=== PATIENT | female | born 1940 | race Caucasian/White ===

== ENCOUNTER → 2017-01-26 | Outpatient (CLI) | payer MEDICARE, OTHER ==
[~2017-01-26] MED LIST: REGADENOSON 0.4 MG/5 ML SYG ONE
--- NOTE | 2017-01-26 12:15 | CARRPT ---
DATE OF PROCEDURE: 01/26/2017 REASON FOR STRESS TESTING: Chest pain, assess for ischemia. BASELINE VITAL SIGNS AND ELECTROCARDIOGRAM: Pulse 57, blood pressure 158/71. Electrocardiogram rev eals sinus bradycardia at 57, normal axis, normal intervals, T-wave flattening in lead aVL. PROCEDURE: The patient underwent standard Lexiscan infusion protocol over 10 seconds followed by ra diolabeled tracer. The patient's test was stopped due to completion of protocol. Maximal achieved blood pressure during the test 180/79. Maximal heart rate during the test 71. ELECTROCARDIOGRAM FINDINGS: The patient did not develop any new Lexiscan-induced ST or T-wave menendez es from baseline abnormalities. The patient did have occasional PVCs. SYMPTOMS: The patient had no complaints of chest pain, but had stomach ache and hot flashes during stress test that resolved in recovery. IMPRESSION: 1. No Lexiscan-induced ST or T-wave changes from baseline abnormalities diagnostic for cardiac isch emia. 2. No complaints of chest pain or shortness of breath during stress testing. 3. Positive premature ventricular contractions during stress testing. 4. Report of nuclear images to follow in separate dictation. Dictated By: LIONEL RODRÍGUEZ/BERNADINE Conf#: [id number] DID#: [id number]
--- NOTE | 2017-01-26 13:02 | RADRPT ---
PROCEDURE: LEXISCAN MYOCARDIAL PERFUSION STUDY CLINICAL INDICATION: 76 -year-old patient with chest pain. TECHNIQUE: Lexiscan 0.4 mg intravenously separate acquisition, gated myocardial perfusion SPECT us ing 10.5 mCi intravenously at stress and 32 mCi intravenously at rest was performed using the rest/s tress sequence. Poststress SPECT images were obtained in the supine position. COMPARISON: No prior studies. FINDINGS: Perfusion images reveal no evidence of perfusion defects. Poststress gated SPECT images demonstrate no wall motion abnormalities. IMPRESSION: 1. No evidence of perfusion defects. 2. No wall motion abnormalities. 3. The left ventricle ejection fraction at stress is overestimated at greater than 70% likely due t o small cardiac volume. RPTAT: HH Physician Shani Date Time Electronically viewed and signed by Physician Shani on 01/26/2017 13:01 /
== END | disposition home or self-care (01) ==
LOC: NUC 07:53
PROVIDERS: ATTEND Internal Medicine
DX: R07.9 Chest pain, unspecified (principal); Z98.61 Coronary angioplasty status
CPT/HCPCS: 78451; J2785

== ENCOUNTER 2018-03-06 08:32 | Day surgery (SDC) | END 2018-03-06 15:13 | disposition home or self-care (01) ==

== ENCOUNTER 2018-05-15 05:39 | Day surgery (SDC) | payer MEDICARE, OTHER ==
--- NOTE | 2018-05-14 12:39 | PREOPHP ---
DATE OF ADMISSION: 05/15/2018 HISTORY OF PRESENT ILLNESS: This 77-year-old patient is admitted for elective cataract surgery of th e left eye. The patient has previously underwent cataract surgery of the right eye 2 months ago with excellent visual improvement. SYSTEMIC HISTORY: Positive for diabetes mellitus, but does not have any evidence of diabetic retinop athy. CURRENT MEDICATIONS: Include: 1. Valsartan. 2. Lantus insulin. 3. Doxazosin. 4. Metoprolol. 5. Humalog. 6. Ranitidine. 7. Allopurinol. 8. Furosemide. 9. Neurontin. 10. Pantoprazole. 11. Spironolactone. 12. Crestor. 13. Nitrostat. 14. Aldactone. 15. Lovaza. 16. Low dose aspirin (the aspirin has been discontinued 1 week prior to surgery). ALLERGIES: THE PATIENT IS ALLERGIC TO: 1. MORPHINE. 2. CODEINE. 3. DILAUDID. 4. IBUPROFEN. PHYSICAL EXAMINATION: The visual acuity with best correction is 20/30 plus in the right eye and 20/6 0 minus in the left eye. Slit lamp examination reveals a well-developed placed posterior chamber int raocular lens in the right eye and a nuclear sclerotic and posterior cortical cataract in the left ey e. Applanation tonometry is 17 mmHg. Examination of the retina is within normal limits. DIAGNOSIS: Mixed cataract, left eye. PLAN: Cataract extraction with lens implant, left eye. The risks and alternatives to the surgery busby ve been discussed with the patient as well as the hope for improvement of visual acuity leading to gr eater ability to perform activities of daily living. The patient understands this and agrees to proc eed with surgery. Dictated By: RODNEY SAHA/BERNADINE Conf#: [id number] DID#: [id number]
[~2018-05-15] VITALS: Ht 152.4 cm; Wt 100.5 kg
[2018-05-15] VITALS (9 sets, daily range): BP systolic 112–154; BP diastolic 55–76; PULSE 54–62; RESP 16–34; Ht 152.4 cm; Wt 100.5 kg
[~2018-05-15 05:39] MED LIST changes: +ACET-141 PO; +ALLO100T PO; +ASPI81TA52 PO; +CYAN500T46 PO; +DOXA2TAB PO; +FURO-109 PO; +GABA100C14 PO; +INSU100I12 SQ; +IRBE150T21 PO; +LANT3I SC; +LIRA0.6P2 SQ; +MAGN400T27 PO; +METO-429 PO; +MULTI PO; +NITR0.4T39 SL; +OMEG1CAP17 PO; +OMEG1CAP2 PO; +PANT40TA3 PO; +RANI150T5 PO; -REGADENOSON 0.4 MG/5 ML SYG ONE; +ROSU10TA55 PO; +SPIR25TA PO
[2018-05-15] MEDS ORDERED: SOD CHLORIDE 0.9% 1,000 ML IV SCH (06:00)
[2018-05-15] MEDS ORDERED: CYCLOPENTOLATE/PHENYLEPH 2 ML OPH OPER SCH (06:00)
[2018-05-15] MEDS ORDERED: DICLOFENAC 0.1% 2.5 ML OPH OPER SCH (06:00)
[2018-05-15] MEDS ORDERED: MOXIFLOXACIN 0.5% 3 ML OPH OPER SCH (06:00)
[2018-05-15] MEDS ORDERED: TROPICAMIDE 1% 15 ML OPH OPER SCH (06:00)
[2018-05-15] MEDS ORDERED: CARBACHOL 0.01% 1.5 ML OPH INJ ONE (06:46)
[2018-05-15] MEDS ORDERED: LIDOCAINE 4% (MPF) 5 ML INJ ONE (06:46)
[2018-05-15] MEDS ORDERED: CEFAZOLIN 1 GM INJ ONE (06:46)
[2018-05-15] MEDS ORDERED: TETRACAINE 0.5% 4 ML OPH ONE (06:47)
[2018-05-15] MEDS ORDERED: DEXAMETHASONE 4 MG/ML 1 ML INJ ONE (06:47)
[2018-05-15] MEDS ORDERED: EPINEPHrine 1 MG INJ ONE (06:47)
[2018-05-15] MEDS ORDERED: NA HYALURONATE/CHONDROITIN 0.5 ML SYG ONE (06:47)
[2018-05-15] MEDS ORDERED: GENTAMICIN 80 MG INJ ONE (06:47)
[2018-05-15] MEDS ORDERED: INSULIN ASPART [NOVOLOG] 3 ML PEN SC SCH (07:00)
[2018-05-15] MEDS ORDERED: GLUCOSE GEL 15 GRAM TUBE PO PRN ×2 (07:00)
[2018-05-15] MEDS ORDERED: GLUCOSE GEL 15 GRAM TUBE BUCCAL PRN (07:00)
[2018-05-15] MEDS ORDERED: GLUCAGON 1 MG INJ IM PRN (07:00)
[2018-05-15] MEDS ORDERED: DEXTROSE 50% 50 ML SYRINGE IV PRN ×2 (07:00)
--- NOTE | 2018-05-15 07:13 | PREAC ---
Date/Time of Note Date/Time of Note DATE: 05/15/18 TIME: 07:10 Anesthesia Eval and Record Evaluation Time Pre-Procedure Interview DATE: 05/15/18 TIME: 07:10 Age 77 Sex female NPO: 8 hrs Preoperative diagnosis L eye cataract Planned procedure L eye cataract extraction w/ IOL Past Medical History Past Medical History: Includes (gastritis) Cardio: Dyslipidemia, CAD Endo: Diabetes Musculoskeletal: Osteoarthritis Renal: CKD GI: Morbid obesity Surgery & Anesthesia Issues No known issue Meds Anticoagulation: No Beta Everett within 24 hr: No Reason Beta Everett not given: Pt. not on B-Everett Reported Medications Multivitamins* (Theragran*) 1 Tab Tab, 1 TAB PO DAILY, TAB 03/05/18 Cyanocobalamin* (Vitamin B12*) 500 Mcg Tab, 2500 MCG PO DAILY, TAB 03/05/18 Acetaminophen* (Acetaminophen*) 500 MG Extra Strength Tablet, 500 MG PO DAILY PRN for PAIN AND OR ELEVATED TEMP, TAB 03/05/18 [place]-3 Fatty Acids/Fish Oil (Fish Oil 1,000 mg Softgel) 1 Each Capsule, 1 EACH PO DAILY, CAP 03/05/18 Liraglutide (Victoza 3-Frank) 0.6 Mg/0.1 Ml Pen.injctr, 1.8 MG SQ DAILY, SYR 03/05/18 Aspirin (Low Dose Aspirin) 81 Mg Tablet.dr, 81 MG PO DAILY, #30 TAB 03/05/18 [place]-3 Acid Ethyl Esters (Lovaza) 1 Gm Capsule, 1 GM PO BID, CAP 03/05/18 Nitroglycerin* (Nitrostat*) 0.4 Mg Tab.subl, 0.4 MG SL Q5MIN PRN for CHEST PAIN, BOTTLE 03/05/18 Magnesium Oxide* (Mag-Oxide*) 400 Mg Tablet, 400 MG PO BID, TAB 03/05/18 Rosuvastatin Calcium* (Crestor*) 10 Mg Tablet, 10 MG PO QHS, #30 TAB 03/05/18 Spironolactone* (Aldactone*) 25 Mg Tablet, 25 MG PO BID, #60 TAB 03/05/18 Pantoprazole* (Protonix*) 40 Mg Tablet.dr, 40 MG PO DAILY, TAB 03/05/18 Gabapentin* (Gabapentin*) 100 Mg Capsule, 100 MG PO BID, #90 CAP 03/05/18 Furosemide* (Lasix*) 40 Mg Tablet, 40 MG PO DAILY, TAB 03/05/18 Allopurinol* (Allopurinol*) 100 Mg Tablet, 100 MG PO DAILY, TAB 03/05/18 Ranitidine Hcl* (Ranitidine Hcl*) 150 Mg Tablet, 150 MG PO HS, #30 TAB 03/05/18 Insulin Lispro (Humalog Kwikpen U-100) 100 Unit/1 Ml Insuln.pen, 8 UNIT SQ QHS, EA 03/05/18 Insulin Lispro (Humalog Kwikpen U-100) 100 Unit/1 Ml Insuln.pen, 6 UNIT SQ BID, EA IN THE MORNING AND AND AFTERNOON 03/05/18 Metoprolol Tartrate* (Lopressor*) 50 Mg Tab, 50 MG PO DAILY, #60 TAB 03/05/18 Doxazosin Mesylate* (Doxazosin Mesylate*) 2 Mg Tablet, 2 MG PO BID, TAB 03/05/18 Insulin Glargine* (Lantus*) 100 Unit/Ml Soln, 26 UNIT SC QPM, #1 VIAL 03/05/18 Insulin Glargine* (Lantus*) 100 Unit/Ml Soln, 29 UNIT SC QAM, #1 VIAL 03/05/18 Irbesartan* (Irbesartan*) 150 Mg Tablet, 150 MG PO DAILY, TAB 03/05/18 Current Medications Diclofenac Sodium (Voltaren 0.1%) 1 drop Q5 MIN X 3 OPER Last administered on 05/15/18at 06:08; Admin Dose 1 DROP; Start 05/15/18 at 06:00 Tropicamide (Mydriacyl 1%) 1 drop Q5 MIN X3 OPER Last administered on 05/15/18at 06:09; Admin Dose 1 DROP; Start 05/15/18 at 06:00 Moxifloxacin HCl (Vigamox) 1 drop Q5 MIN X 3 OPER Last administered on at 06:09; Admin Dose 1 DROP; Start 05/15/18 at 06:00 Cyclopentolate/ Phenylephrine (Cyclomydril Oph 2 ml) 1 drop Q5 MIN X 3 OPER Last administered on 05/15/18at 06:09; Admin Dose 1 DROP; Start 05/15/18 at 06:00 Sodium Chloride 1,000 ml @ 25 mls/hr Q24H IV ; Start 05/15/18 at 06:00 Diagnostic Test (Pha) (Accu-Chek) 1 ea 02 XX ; Start 05/16/18 at 02:00 Insulin Aspart (Novolog Insulin Pen) NOVOLOG *MILD* ALGORI... Q4 SC ; Start 05/15/18 at 07:00 Miscellaneous Information 1 ea NOTE XX ; Start 05/15/18 at 07:00 Glucose (Glutose) 15 gm Q15M PRN PO DECREASED GLUCOSE; Start 05/15/18 at 07:00 Glucose (Glutose) 22.5 gm Q15M PRN PO DECREASED GLUCOSE; Start 05/15/18 at 07:00 Dextrose (D50w Syringe) 25 ml Q15M PRN IV DECREASED GLUCOSE; Start 05/15/18 at 07:00 Dextrose (D50w Syringe) 50 ml Q15M PRN IV DECREASED GLUCOSE; Start 05/15/18 at 07:00 Glucagon (Glucagen) 1 mg Q15M PRN IM DECREASED GLUCOSE; Start 05/15/18 at 07:00 Glucose (Glutose) 15 gm Q15M PRN BUCCAL DECREASED GLUCOSE; Start 05/15/18 at 07:00 Meds reviewed: Yes Allergies Coded Allergies: Iodine and Iodide Containing Produc (Verified Allergy, Unknown, 05/15/18) codeine (Verified Allergy, Unknown, 05/15/18) hydromorphone (Verified Allergy, Unknown, 05/15/18) morphine (Verified Allergy, Unknown, 05/15/18) Allergies Reviewed: Yes Labs/Studies Labs Reviewed: Reviewed by anesthesiologist test: N/A Studies: ECG (ST w/ frequent PVCs) Pre-procedure Exam Last vitals Vital Signs Date Temp Pulse Resp B/P (MAP) Pulse Ox O2 O2 Flow FiO2 Time Delivery Rate 05/15/18 97.8 62 18 154/69 98 Room Air 06:49 (97) Airway: Adequate mouth opening, Adequate thyromental dist Mallampati: Mallampati II Teeth: Abnormal (multiple missing teeth, chipped teeth in front; teeth in poor condition) Lung: Normal Heart: Normal ASA Physical Status ASA physical status: 3 Emergency: None Planned Anesthetic General/MAC: MAC Pre-operative Attestations Prior to commencing anesthesia and surgery, the patient was re-evaluated, there was verification of: *The patient's identity *The results of appropriate recent lab work and preoperative vital signs *The above evaluation not changing prior to induction *Anesthetic plan, risk benefits, alternative and complications discussed with patient/family; questions answered; patient/family understands, accepts and wishes to proceed. GEMA CALDWELL May 15, 2018 07:13
[2018-05-15] MEDS ORDERED: ALBUTEROL 0.083% (NEB) 2.5 MG/3 ML AMP HHN PRN (07:30)
[2018-05-15] MEDS ORDERED: DIPHENHYDRAMINE 50 MG INJ IV PRN (07:30)
[2018-05-15] MEDS ORDERED: ACETAMINOPHEN 500 MG TAB PO PRN (07:30)
[2018-05-15] MEDS ORDERED: LABETALOL HCL 20MG INJ IV PRN (07:30)
[2018-05-15] MEDS ORDERED: ACETAMINOPHEN 325 MG TAB PO PRN (07:30)
[2018-05-15] MEDS ORDERED: FENTAnyl 50 MCG/ML VIAL IV PRN (07:30)
[2018-05-15] MEDS ORDERED: hydrALAzine 20 MG INJ IV PRN (07:30)
[2018-05-15] MEDS ORDERED: ONDANSETRON 4 MG INJ IV PRN (07:30)
[2018-05-15] MEDS ORDERED: GABA100C14 PO (07:35)
[2018-05-15] MEDS ORDERED: LIDOCAINE 2% (SDV) 5 ML INJ ONE (07:37)
[2018-05-15] MEDS ORDERED: PROPOFOL 20 ML ONE (07:37)
[2018-05-15] MEDS ORDERED: ICOS1CAP PO (07:39)
[2018-05-15] MEDS ORDERED: FENTAnyl 50 MCG/ML VIAL ONE (07:55)
--- NOTE | 2018-05-15 08:18 | SIPON ---
Date/Time of Note Date/Time of Note DATE: 05/15/18 TIME: 08:17 Operative Report Preoperative Diagnosis cortical cataract os Postoperative Diagnosis same Operation/Procedure Performed cataract extraction with lens implant os Surgeon rodney hernández commercial loan assistant none Anesthesia: MAC Estimated blood loss: none Transfusion Required none Specimen none Grafts/Implants posterior chamber lens implant Complications none RODNEY HERNÁNDEZ MD May 15, 2018 08:18
--- NOTE | 2018-05-15 08:21 | PAC ---
Date/Time of Note Date/Time of Note DATE: 05/15/18 TIME: 08:20 Post-Anesthesia Notes Post-Anesthesia Note Last documented vital signs Vital Signs Date Temp Pulse Resp B/P Pulse Ox O2 O2 Flow FiO2 Time (MAP) Delivery Rate 05/15/18 97.8 98.1 62 60 18 18 154/69 98 98 Room 06:49 081 (07) 141 Air RA Activity: WNL Respiratory function: WNL Cardiovascular function: WNL Mental status: Baseline Pain reasonably controlled: Yes Hydration appropriate: Yes Nausea/Vomiting absent: Yes GEMA CALDWELL May 15, 2018 08:21
[2018-05-15] MEDS ORDERED: INSULIN ASPART [NOVOLOG] 3 ML PEN SC ONE (08:30)
--- NOTE | 2018-05-15 08:34 | OPR ---
DATE OF OPERATION: 05/15/2018 PREOPERATIVE DIAGNOSIS: Cortical cataract, left eye. POSTOPERATIVE DIAGNOSIS: Cortical cataract, left eye. OPERATION PERFORMED: Cataract extraction with lens implant, left eye. SURGEON: Rodney Lakhani MD. ANESTHESIA: Carin MICHAELS. OPERATION: Phacoemulsification with posterior chamber intraocular lens implant, left eye. PROCEDURE: The patient was brought to the operating room and placed on the table with an IV in place and the patient attached to an traverse rod assembler. Oxygen was given via face mask. After some intravenous sedation was administered, local anesthesia was given using Xylocaine 2% with epinephrine, mixed with Marcaine 0.5%. This was given in a lid block and retrobulbar injection. The p atient was then prepped and draped in the usual sterile manner. A wire lid speculum was inserted between the lids of the left eye. A Superblade was used to enter the anterior chamber at the corneoscleral limbus at the 10:30 o'clock position. A separate incision was made using a 3.0-mm keratome which entered the corneoscleral junction at the 12 o'clock position. Thr ough this 3-mm opening, an irrigating cystotome was introduced into the anterior chamber. The chamber was filled with Viscoat and an anterior capsulotomy was performed. Balanced salt solution was then u sed for hydrodissection of the lens. A phacoemulsification handpiece was then brought into the field and introduced into the anterior chamber. The lens nucleus was emulsified using a deep groove and cr acking the nucleus into quadrants. Following this, each quadrant was aspirated and emulsified at the pupillary margin. After this was completed, the irrigation/aspiration handpiece was brought to the field, introduced in to the posterior chamber, and the lens cortical material was removed. When this was completed, additi onal Viscoat was injected into the anterior and posterior chambers. The 3-mm opening had its internal lips enlarged, and then the posterior chamber intraocular lens blaine uring 19.0 diopters posterior chamber intraocular lens ([employer] Model [id number]) was then injected into the posterior chamber using the lens injector system. After the leading haptic wa s introduced into the capsular bag and the lens optic was present in the center of the eye, the injec tor was removed and the trailing haptic was grasped with non-toothed forceps and introduced into the capsular fold superiorly. A Sinskey hook was then used to rotate the intraocular lens so that the lip s were oriented in the horizontal meridian. One 10-0 nylon suture was placed across the wound. Prior to tying, the irrigation/aspiration handpiece was reintroduced into the anterior chamber to rem ove the Viscoat. Miochol was instilled to constrict the pupil, and then the 10-0 nylon suture was tie d. The ends were cut short and then the knot was buried. Then, 0.5 mL of dexamethasone and 0.5 mL of Ancef were injected into the sub-Tenon space in the infer ior fornix. Ciloxan drops were then placed on the surface of the eye. The speculum was removed and a patch was applied. The patient then left the operating room in satisfactory condition. Dictated By: RODNEY SAHA/BERNADINE Conf#: [id number] DID#: [id number]
[2018-05-16] MEDS ORDERED: ACCU-CHEK XX SCH (02:00)
== END 2018-05-15 09:38 | disposition home or self-care (01) ==
LOC: SDS 05:39
PROVIDERS: ATTEND Ophthalmology
DX: H25.12 Age-related nuclear cataract, left eye (principal); E78.5 Hyperlipidemia, unspecified; I25.10 Atherosclerotic heart disease of native coronary artery without angina pectoris; E11.9 Type 2 diabetes mellitus without complications; Z79.4 Long term (current) use of insulin; Z79.82 Long term (current) use of aspirin
CPT/HCPCS: 66984; 82962; J0171; J0690; J1100; J1580; J1815; J3010; V2632

== ENCOUNTER 2018-07-28 21:07 | Observation (INO) | payer MEDICARE, OTHER ==
[~2018-07-28] VITALS: Ht 152.4 cm; Wt 98.2 kg
[~2018-07-28 21:07] MED LIST changes: +ICOS1CAP PO; -LIRA0.6P2 SQ; -OMEG1CAP17 PO; -OMEG1CAP2 PO; -ROSU10TA55 PO; +RSV10T PO
[2018-07-28] MEDS ORDERED: ONDANSETRON 4 MG INJ IV STA (23:01)
[2018-07-29] VITALS (13 sets, daily range): BP systolic 108–151; BP diastolic 56–67; PULSE 57–100; RESP 18–20; Ht 152.4 cm; Wt 98.2 kg
--- NOTE | 2018-07-29 00:57 | ERD ---
ER Documentation Chief Complaint Chief Complaint SOB, PAINFUL RESPIRATION/ COUGH X'S 6 DAYS HPI This is a 77-year-old female presents with 6 days of increasing shortness of breath, as well as increased bilateral lower leg swelling. She has a history of coronary disease and CHF, currently she is on Lasix, she was admitted to [facility] about a month ago, for weeping coming from her legs, she did not have chest pain at that time. Her symptoms are also exacerbated by movement. She has had no nausea vomiting. No fever ROS All systems reviewed and are negative except as per history of present illness. Medications Home Meds Reported Medications Icosapent Ethyl (VASCEPA) 1 Gm Capsule, 1 GM PO BID, CAP 05/15/18 Gabapentin* (Gabapentin*) 100 Mg Capsule, 100 MG PO QID, #90 CAP 05/15/18 Multivitamins* (Theragran*) 1 Tab Tab, 1 TAB PO DAILY, TAB 03/05/18 Cyanocobalamin* (Vitamin B12*) 500 Mcg Tab, 2500 MCG PO DAILY, TAB 03/05/18 Acetaminophen* (Acetaminophen*) 500 MG Extra Strength Tablet, 500 MG PO DAILY PRN for PAIN AND OR ELEVATED TEMP, TAB 03/05/18 Aspirin (Low Dose Aspirin) 81 Mg Tablet.dr, 81 MG PO DAILY, #30 TAB 03/05/18 Nitroglycerin* (Nitrostat*) 0.4 Mg Tab.subl, 0.4 MG SL Q5MIN PRN for CHEST PAIN, BOTTLE 03/05/18 Magnesium Oxide* (Mag-Oxide*) 400 Mg Tablet, 400 MG PO BID, TAB 03/05/18 Rosuvastatin Calcium* (Crestor*) 10 Mg Tablet, 10 MG PO QHS, #30 TAB 03/05/18 Spironolactone* (Aldactone*) 25 Mg Tablet, 25 MG PO BID, #60 TAB 03/05/18 Pantoprazole* (Protonix*) 40 Mg Tablet.dr, 40 MG PO DAILY, TAB 03/05/18 Furosemide* (Lasix*) 40 Mg Tablet, 40 MG PO DAILY, TAB 03/05/18 Allopurinol* (Allopurinol*) 100 Mg Tablet, 100 MG PO DAILY, TAB 03/05/18 Ranitidine Hcl* (Ranitidine Hcl*) 150 Mg Tablet, 150 MG PO HS, #30 TAB 03/05/18 Insulin Lispro (Humalog Kwikpen U-100) 100 Unit/1 Ml Insuln.pen, 8 UNIT SQ QHS, EA 03/05/18 Insulin Lispro (Humalog Kwikpen U-100) 100 Unit/1 Ml Insuln.pen, 6 UNIT SQ BID, EA IN THE MORNING AND AND AFTERNOON 03/05/18 Metoprolol Tartrate* (Lopressor*) 50 Mg Tab, 50 MG PO DAILY, #60 TAB 03/05/18 Doxazosin Mesylate* (Doxazosin Mesylate*) 2 Mg Tablet, 2 MG PO BID, TAB 03/05/18 Insulin Glargine* (Lantus*) 100 Unit/Ml Soln, 26 UNIT SC QPM, #1 VIAL 03/05/18 Insulin Glargine* (Lantus*) 100 Unit/Ml Soln, 29 UNIT SC QAM, #1 VIAL 03/05/18 Irbesartan* (Irbesartan*) 150 Mg Tablet, 150 MG PO DAILY, TAB 03/05/18 Allergies Allergies: Coded Allergies: Iodine and Iodide Containing Produc (Verified Allergy, Unknown, 05/15/18) codeine (Verified Allergy, Unknown, 05/15/18) hydromorphone (Verified Allergy, Unknown, 05/15/18) morphine (Verified Allergy, Unknown, 05/15/18) PMhx/Soc History of Surgery: Yes (CHOLECYSTECTOMY, R SHOULDER, R KNEE MENISCUS) Anesthesia Reaction: No Hx Neurological Disorder: No Hx Respiratory Disorders: No Hx Cardiac Disorders: Yes (HTN,HLP) Hx Psychiatric Problems: No Hx Miscellaneous Medical Probl: No Hx Alcohol Use: No Hx Substance Use: No Hx Tobacco Use: No Smoking Status: Never smoker Physical Exam Vitals Vital Signs Date Temp Pulse Resp B/P (MAP) Pulse Ox O2 O2 Flow FiO2 Time Delivery Rate 07/29/18 71 17 136/61 95 Room Air 01:12 (86) 07/28/18 98.5 90 20 135/72 93 21:14 (93) Physical Exam Const: No acute distress Head: Atraumatic Eyes: Normal Conjunctiva ENT: Normal External Ears, Nose and Mouth. Neck: Full range of motion. No meningismus. Resp: There are rales noted bilaterally, there is no expiratory wheezing Cardio: Regular rate and rhythm, no murmurs Abd: Soft, non tender, non distended. Normal bowel sounds Skin: No petechiae or rashes Back: No midline or flank tenderness Ext: No cyanosis, or edema Neur: Awake and alert Psych: Normal Mood and Affect Result Diagram: 07/28/18 2335 07/28/18 2335 Results 24 hrs Laboratory Tests Test 07/28/18 23:35 White Blood Count 9.1 10^3/ul Red Blood Count 3.85 10^6/ul Hemoglobin 10.8 g/dl Hematocrit 35.7 % Mean Corpuscular Volume 92.7 fl Mean Corpuscular Hemoglobin 28.1 pg Mean Corpuscular Hemoglobin Concent 30.3 g/dl Red Cell Distribution Width 17.3 % Platelet Count 143 10^3/UL Mean Platelet Volume 13.3 fl Immature Granulocytes % 1.200 % Neutrophils % 71.6 % Lymphocytes % 20.6 % Monocytes % 4.8 % Eosinophils % 1.4 % Basophils % 0.4 % Nucleated Red Blood Cells % 0.0 /100WBC Immature Granulocytes # 0.110 10^3/ul Neutrophils # 6.5 10^3/ul Lymphocytes # 1.9 10^3/ul Monocytes # 0.4 10^3/ul Eosinophils # 0.1 10^3/ul Basophils # 0.0 10^3/ul Nucleated Red Blood Cells # 0.0 10^3/ul Sodium Level 143 mmol/L Potassium Level 4.6 mmol/L Chloride Level 109 mmol/L Carbon Dioxide Level 26 mmol/L Anion Gap 8 Blood Urea Nitrogen 28 mg/dl Creatinine 1.33 mg/dl Est Glomerular Filtrat Rate mL/min mL/min Glucose Level 253 mg/dl Calcium Level 9.1 mg/dl Total Bilirubin 0.3 mg/dl Direct Bilirubin 0.00 mg/dl Indirect Bilirubin 0.3 mg/dl Aspartate Amino Transf (AST/SGOT) 20 IU/L Alanine Aminotransferase (ALT/SGPT) 9 IU/L Alkaline Phosphatase 88 IU/L Troponin I < 0.012 ng/ml B-Type Natriuretic Peptide 715 PG/ML Total Protein 6.8 g/dl Albumin 3.8 g/dl Globulin 3.00 g/dl Albumin/Globulin Ratio 1.26 Current Medications Medications Dose Sig/Manuel Start Time Status Last (Trade) Ordered Route PRN Stop Time Admin Dose Reason Admin Ondansetron 4 mg ONCE STAT 07/28/18 DC 07/28/18 HCl (Zofran IV 23:01 23:44 Inj) 07/28/18 23:03 Furosemide 20 mg ONCE ONCE 07/29/18 DC 07/29/18 (Lasix) IV 01:00 01:07 07/29/18 01:01 Procedures/MDM This is a 77-year-old female presents for evaluation of chest pain and increasing shortness of breath. Her chest pain is reproducible on exam, and is nonradiating, my suspicion for acute coronary syndrome is low, however she does have risk factors significantly with history of coronary artery disease, and CHF. Additionally she appears to have an acute on chronic CHF exacerbation, this she will be admitted to observation. She was given a dose of Lasix. EKG: Rate/Rhythm: Normal Sinus Rhythm QRS, ST, T-waves: No changes consistent w/ acute ischemia Impression: No evidence of ischemia or arrhythmia Accepting Care Team: Current data and ongoing care discussed. Primary: Harvey Consulting: None Outstanding Data: none Departure Diagnosis: Primary Impression: Shortness of breath Additional Impressions: Chest pain Chest pain type: unspecified Qualified Codes: R07.9 - Chest pain, unspecified CHF (congestive heart failure) Heart failure type: unspecified Heart failure chronicity: unspecified Qualified Codes: I50.9 - Heart failure, unspecified Condition: JULIOCESAR Abdul MD July 29, 2018 00:57
[2018-07-29] MEDS ORDERED: FUROSEMIDE 20 MG INJ IV ONE (01:00)
[2018-07-29] MEDS ORDERED: Vitamin D PO (03:13)
[2018-07-29] MEDS ORDERED: METO2.5T PO (03:13)
[2018-07-29] MEDS ORDERED: ONDANSETRON 4 MG INJ IV PRN (03:30)
[2018-07-29] MEDS ORDERED: NITROGLYCERIN (SL) 0.4 MG TAB SL PRN (03:30)
[2018-07-29] MEDS ORDERED: NACL 0.9% 3 ML SYG IV SCH (03:30)
[2018-07-29] MEDS ORDERED: ALBUTEROL/IPRATROPIUM (NEB) 3 ML AMP HHN PRN (03:30)
[2018-07-29] MEDS ORDERED: DEXTROSE 50% 50 ML SYRINGE IV PRN ×2 (04:00)
[2018-07-29] MEDS ORDERED: GLUCOSE GEL 15 GRAM TUBE PO PRN ×2 (04:00)
[2018-07-29] MEDS ORDERED: GLUCAGON 1 MG INJ IM PRN (04:00)
[2018-07-29] MEDS ORDERED: GLUCOSE GEL 15 GRAM TUBE BUCCAL PRN (04:00)
[2018-07-29] MEDS: ACETAMINOPHEN 325 MG TAB PO PRN ×2 (05:18→20:11)
--- NOTE | 2018-07-29 06:03 | HP ---
Date/Time of Note Date/Time of Note DATE: 07/29/18 TIME: 05:59 Assessment/Plan VTE Prophylaxis Pharmacological prophylaxis: heparin Lines/Catheters IV Catheter Type (from Nrsg): Saline Lock Assessment/Plan Assessment/Plan 1. Right-sided rib/chest pain: Pain is actually on the rib underneath her right breast. -Chest x-ray does not show any rib fracture. Will obtain chest CT. -Given her history of CAD with stents x7, will rule out ACS -EKG without ST-T wave abnormalities and first troponin negative -Telemetry monitoring -Aspirin, beta-carlito, antilipid. 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 Shortness of breath: secondary to acute on chronic CHF (systolic versus diastolic) -Work-up for ACS -Diuresis -Follow-up 2D echo 3. CAD status post multiple stent: See #1 4. Dyslipidemia: Continue Crestor 5. Type 1 diabetes: Continue insulin 6. Gout: Continue allopurinol Result Diagram: 07/28/18 2335 07/28/18 2335 Results 24hrs Laboratory Tests Test 07/28/18 23:35 07/29/18 02:59 White Blood Count 9.1 Red Blood Count 3.85 L Hemoglobin 10.8 L Hematocrit 35.7 L Mean Corpuscular Volume 92.7 Mean Corpuscular Hemoglobin 28.1 L Mean Corpuscular Hemoglobin Concent 30.3 L Red Cell Distribution Width 17.3 H Platelet Count 143 Mean Platelet Volume 13.3 H Immature Granulocytes % 1.200 H Neutrophils % 71.6 Lymphocytes % 20.6 Monocytes % 4.8 Eosinophils % 1.4 Basophils % 0.4 Nucleated Red Blood Cells % 0.0 Immature Granulocytes # 0.110 H Neutrophils # 6.5 Lymphocytes # 1.9 Monocytes # 0.4 Eosinophils # 0.1 Basophils # 0.0 Nucleated Red Blood Cells # 0.0 Sodium Level 143 Potassium Level 4.6 Chloride Level 109 Carbon Dioxide Level 26 Anion Gap 8 Blood Urea Nitrogen 28 H Creatinine 1.33 H Est Glomerular Filtrat Rate mL/min Glucose Level 253 H Calcium Level 9.1 Total Bilirubin 0.3 Direct Bilirubin 0.00 Indirect Bilirubin 0.3 Aspartate Amino Transf (AST/SGOT) 20 Alanine Aminotransferase (ALT/SGPT) 9 L Alkaline Phosphatase 88 Troponin I < 0.012 B-Type Natriuretic Peptide 715 H Total Protein 6.8 Albumin 3.8 Globulin 3.00 Albumin/Globulin Ratio 1.26 Bedside Glucose 207 HPI/ROS Admit Date/Time Admit Date/Time July 29, 2018 at 01:16 Hx of Present Illness This is a 77-year-old female with a history of hypertension, type 2 diabetes, dyslipidemia, CAD with multiple stents, CHF, gout who presented to the ER complaining of chest pain shortness of breath. Symptoms have been progressively getting worse for the past several days. Shortness of breath is worse when she is in a supine position. Chest pain is actually right-sided and underneath her right breast. Tenderness was elicited on palpation of the rib right below her breast. She does not actually have any pain on her breast. Last mammogram per patient was a year ago and it was negative. She also reported lower extremity swelling. Her fire extinguisher sprinkler inspector is Dr. Wray. When presented to the ER, vitals were stable. First troponin negative and EKG without ST-T wave abnormalities PMH/Family/Social Past Medical History Medical History: other (See HPI) Medications Current Medications IV Flush (NS 3 ml) 3 ml PER PROTOCOL IV ; Start 07/29/18 at 03:30 Ondansetron HCl (Zofran Inj) 4 mg Q6H PRN IV NAUSEA/VOMITING; Start 07/29/18 at 03:30 Nitroglycerin (Nitroglycerin (Sl Tab) 0.4 Mg) 1 tab Q5M PRN SL .CHEST PAIN; Start 07/29/18 at 03:30 Acetaminophen (Tylenol Tab) 650 mg Q6H PRN PO .PAIN 1-3 OR TEMP Last administered on 07/29/18at 05:18; Admin Dose 650 MG; Start 07/29/18 at 03:30 Heparin Sodium (Porcine) (Heparin (5000 Units/1ml)) 5,000 unit Q12 SC ; Start 07/29/18 at 09:00 Albuterol/ Ipratropium (Duoneb) 3 ml Q2H RESP THERAPY PRN HHN SHORTNESS OF BREATH; Start 07/29/18 at 03:30 Allopurinol (Zyloprim) 100 mg DAILY PO ; Start 07/29/18 at 09:00 Doxazosin Mesylate (Cardura) 2 mg BID PO ; Start 07/29/18 at 09:00 Furosemide (Lasix) 40 mg DAILY PO ; Start 07/29/18 at 09:00 Gabapentin (Neurontin) 100 mg QID PO ; Start 07/29/18 at 09:00 Insulin Glargine (Lantus) 28 units QAM SC ; Start 07/29/18 at 09:00 Magnesium Oxide (Mag-Ox 400) 400 mg DAILY PO ; Start 07/29/18 at 09:00 Metolazone (Zaroxolyn) 2.5 mg DAILY PO ; Start 07/29/18 at 09:00 Metoprolol Tartrate (Lopressor) 50 mg DAILY PO ; Start 07/29/18 at 09:00 Pantoprazole (Protonix Tab) 40 mg DAILY PO ; Start 07/29/18 at 09:00 Spironolactone (Aldactone) 25 mg BID PO ; Start 07/29/18 at 09:00 Miscellaneous Information 150 mg DAILY PO ; Start 07/29/18 at 09:00; Status UNV Miscellaneous Information 10 mg BID PO ; Start 07/29/18 at 09:00; Status UNV Miscellaneous Information 1 ea NOTE XX ; Start 07/29/18 at 04:00 Glucose (Glutose) 15 gm Q15M PRN PO DECREASED GLUCOSE; Start 07/29/18 at 04:00 Glucose (Glutose) 22.5 gm Q15M PRN PO DECREASED GLUCOSE; Start 07/29/18 at 04:00 Dextrose (D50w Syringe) 25 ml Q15M PRN IV DECREASED GLUCOSE; Start 07/29/18 at 04:00 Dextrose (D50w Syringe) 50 ml Q15M PRN IV DECREASED GLUCOSE; Start 07/29/18 at 04:00 Glucagon (Glucagen) 1 mg Q15M PRN IM DECREASED GLUCOSE; Start 07/29/18 at 04:00 Glucose (Glutose) 15 gm Q15M PRN BUCCAL DECREASED GLUCOSE; Start 07/29/18 at 04:00 Insulin Aspart (Novolog Insulin Pen) 8 unit WITH MEALS SC ; Start 07/29/18 at 08:00 Diagnostic Test (Pha) (Accu-Chek) 1 ea 02 XX ; Start 07/30/18 at 02:00 Insulin Aspart (Novolog Insulin Pen) NOVOLOG *MILD* ALGORITHM WITH MEALS BEDTIME SC ; Start 07/29/18 at 08:00 Coded Allergies: Iodine and Iodide Containing Produc (Verified Allergy, Unknown, 05/15/18) codeine (Verified Allergy, Unknown, 05/15/18) hydromorphone (Verified Allergy, Unknown, 05/15/18) morphine (Verified Allergy, Unknown, 05/15/18) Past Surgical History Past Surgical Hx: other (HPI) Family History Significant Family History: no pertinent family hx Social History Alcohol Use: none Smoking Status: Former smoker Drug Use: none Exam/Review of Systems Vital Signs Vitals Vital Signs Date Temp Pulse Resp B/P (MAP) Pulse Ox O2 O2 Flow FiO2 Time Delivery Rate 07/29/18 65 04:00 07/29/18 98.7 18 108/57 96 03:36 (74) 07/29/18 Room Air 01:59 Intake and Output 07/28/18 07/28/18 07/29/18 1515:00 23:00 07:00 IntakeIntake Total 200 ml BalanceBalance 200 ml Exam Constitutional: alert, oriented, well developed Eyes: EOMI, PERRL Respiratory: clear to auscultation, normal air movement Cardiovascular: regular rate and rhythm, nl pulses Gastrointestinal: soft Musculoskeletal: other (Pain was elicited on the rib right below the right breast) Extremities: edema MIGUELANGEL PAEZ MD July 29, 2018 06:03
[2018-07-29] MEDS ORDERED: NON-FORMULARY/PATIENT OWN MED (Insulin Lispro (Humalog Kwikpen U-100) 8 UNIT) SQ SCH (08:00)
[2018-07-29] MEDS: SPIRONOLACTONE 25 MG TAB PO SCH ×2 (08:35→20:11)
[2018-07-29] MEDS: ALLOPURINOL 100 MG TAB PO SCH (08:35)
[2018-07-29] MEDS: MAGNESIUM OXIDE 400 MG TAB PO SCH (08:35)
[2018-07-29] MEDS: METOLAZONE 2.5 MG TAB PO SCH ×2 (08:35→09:00)
[2018-07-29] MEDS: PANTOPRAZOLE (EC) 40 MG TAB PO SCH (08:36)
[2018-07-29] MEDS: DOXAZOSIN 2 MG TAB PO SCH ×2 (08:36→20:11)
[2018-07-29] MEDS: GABAPENTIN 100 MG CAP PO SCH ×4 (08:36→20:11)
[2018-07-29] MEDS: INSULIN ASPART [NOVOLOG] 3 ML PEN SC SCH ×7 (08:39→20:16)
[2018-07-29] MEDS: HEPARIN 5,000 UNIT/1 ML VIAL SC SCH ×2 (08:39→20:20)
[2018-07-29] MEDS: INSULIN GLARGINE [LANTus] (100 UNITS/ML) SYG SC SCH (08:39)
[2018-07-29] MEDS ORDERED: FUROSEMIDE 20 MG INJ IV SCH (09:00)
[2018-07-29] MEDS: METOPROLOL 50 MG TAB PO SCH ×2 (09:00→12:04)
[2018-07-29] MEDS ORDERED: LOSARTAN 50 MG TAB PO SCH (09:00)
[2018-07-29] MEDS ORDERED: FUROSEMIDE 40 MG TAB PO SCH (09:00)
--- NOTE | 2018-07-29 12:25 | CONS ---
Assessment/Plan Assessment/Plan Assessment/Plan 1.Chest pain unspecified 2.Sob sec to Chf exacerbation 3.Ckd-3 4.AODM 5.Htn 6.Dyslipidemia 7.Anemia sec to Ckd p: -Chest pain with no acute ST/T wave abnormality on EKG. First set troponin negative -Ckd-3. S.cr unchanged. Continue diuresis -Diastolic Chf. Continue diuresis. Check 2D Echo. Change lasix to 40mg iv bid. Hold cozaar while pt is being diuresed -Htn, Bp profile reviewed. Bp meds noted -Uncontrolled AODM. HBA1C 9.3 -Anemia. Check iron studies. Order epogen after review of iron studies -Dyslipidemia -Renal issues d/w pts family at bedside Consultation Date/Type/Reason Admit Date/Time July 29, 2018 at 01:16 Type of Consult Nephrology Reason for Consultation Ckd-3 Date/Time of Note DATE: 07/29/18 TIME: 12:21 Cardiovascular: other (sob on admission) Past Medical History Medical History Nephrology: congestive heart failure, coronary artery disease, diabetes, hypertension, renal disease Home Meds Reported Medications [Vitamin D] No Conflict Check, [address] PO QFriday 07/29/18 Metolazone* (Metolazone*) 2.5 Mg Tablet, 2.5 MG PO DAILY, TAB 07/29/18 Icosapent Ethyl (VASCEPA) 1 Gm Capsule, 1 GM PO BID, CAP 05/15/18 Gabapentin* (Gabapentin*) 100 Mg Capsule, 100 MG PO QID, #90 CAP 05/15/18 Multivitamins* (Theragran*) 1 Tab Tab, 1 TAB PO DAILY, TAB 03/05/18 Cyanocobalamin* (Vitamin B12*) 500 Mcg Tab, 2500 MCG PO DAILY, TAB 03/05/18 Acetaminophen* (Acetaminophen*) 500 MG Extra Strength Tablet, 1000 MG PO Q6 PRN for PAIN AND OR ELEVATED TEMP, TAB 03/05/18 Aspirin (Low Dose Aspirin) 81 Mg Tablet.dr, 81 MG PO DAILY, #30 TAB 03/05/18 Nitroglycerin* (Nitrostat*) 0.4 Mg Tab.subl, 0.4 MG SL Q5MIN PRN for CHEST PAIN, BOTTLE 03/05/18 Magnesium Oxide* (Mag-Oxide*) 400 Mg Tablet, 400 MG PO DAILY, TAB 03/05/18 Rosuvastatin Calcium* (Crestor*) 10 Mg Tablet, 10 MG PO BID, #30 TAB 03/05/18 Spironolactone* (Aldactone*) 25 Mg Tablet, 25 MG PO BID, #60 TAB 03/05/18 Pantoprazole* (Protonix*) 40 Mg Tablet.dr, 40 MG PO DAILY, TAB 03/05/18 Furosemide* (Lasix*) 40 Mg Tablet, 40 MG PO DAILY, TAB 03/05/18 Allopurinol* (Allopurinol*) 100 Mg Tablet, 100 MG PO DAILY, TAB 03/05/18 Ranitidine Hcl* (Ranitidine Hcl*) 150 Mg Tablet, 150 MG PO HS, #30 TAB 03/05/18 Insulin Lispro (Humalog Kwikpen U-100) 100 Unit/1 Ml Insuln.pen, 8 UNIT SQ WITH MEALS, EA 03/05/18 Metoprolol Tartrate* (Lopressor*) 50 Mg Tab, 50 MG PO DAILY, #60 TAB 03/05/18 Doxazosin Mesylate* (Doxazosin Mesylate*) 2 Mg Tablet, 2 MG PO BID, TAB 03/05/18 Insulin Glargine* (Lantus*) 100 Unit/Ml Soln, 28 UNIT SC QPM, #1 VIAL 03/05/18 Insulin Glargine* (Lantus*) 100 Unit/Ml Soln, 28 UNIT SC QAM, #1 VIAL 03/05/18 Irbesartan* (Irbesartan*) 150 Mg Tablet, 150 MG PO DAILY, TAB 03/05/18 Medications Current Medications IV Flush (NS 3 ml) 3 ml PER PROTOCOL IV ; Start 07/29/18 at 03:30 Ondansetron HCl (Zofran Inj) 4 mg Q6H PRN IV NAUSEA/VOMITING; Start 07/29/18 at 03:30 Nitroglycerin (Nitroglycerin (Sl Tab) 0.4 Mg) 1 tab Q5M PRN SL .CHEST PAIN; Start 07/29/18 at 03:30 Acetaminophen (Tylenol Tab) 650 mg Q6H PRN PO .PAIN 1-3 OR TEMP Last administered on 07/29/18at 05:18; Admin Dose 650 MG; Start 07/29/18 at 03:30 Heparin Sodium (Porcine) (Heparin (5000 Units/1ml)) 5,000 unit Q12 SC Last administered on 07/29/18 08:39; Admin Dose 5,000 UNIT; Start 07/29/18 at 09:00 Albuterol/ Ipratropium (Duoneb) 3 ml Q2H RESP THERAPY PRN HHN SHORTNESS OF BREATH; Start 07/29/18 at 03:30 Allopurinol (Zyloprim) 100 mg DAILY PO Last administered on 07/29/18 08:35; Admin Dose 100 MG; Start 07/29/18 at 09:00 Doxazosin Mesylate (Cardura) 2 mg BID PO Last administered on 07/29/18 08:36; Admin Dose 2 MG; Start 07/29/18 at 09:00 Furosemide (Lasix) 40 mg DAILY PO ; Start 07/29/18 at 09:00 Gabapentin (Neurontin) 100 mg QID PO Last administered on 07/29/18 12:04; Admi n Dose 100 MG; Start 07/29/18 at 09:00 Insulin Glargine (Lantus) 28 units QAM SC Last administered on 07/29/18 08:39; Admin Dose 28 UNITS; Start 07/29/18 at 09:00 Magnesium Oxide (Mag-Ox 400) 400 mg DAILY PO Last administered on 07/29/18 08:35; Admin Dose 400 MG; Start 07/29/18 at 09:00 Metolazone (Zaroxolyn) 2.5 mg DAILY PO ; Start 07/29/18 at 09:00 Metoprolol Tartrate (Lopressor) 50 mg DAILY PO Last administered on 07/29/18at 12:04; Admin Dose 50 MG; Start 07/29/18 at 09:00 Pantoprazole (Protonix Tab) 40 mg DAILY PO Last administered on 07/29/18 08:36; Admin Dose 40 MG; Start 07/29/18 at 09:00 Spironolactone (Aldactone) 25 mg BID PO Last administered on 07/29/18 08:35; Admin Dose 25 MG; Start 07/29/18 at 09:00 Miscellaneous Information 150 mg DAILY PO ; Start 07/29/18 at 09:00; Status UNV Miscellaneous Information 10 mg BID PO ; Start 07/29/18 at 09:00; Status UNV Miscellaneous Information 1 ea NOTE XX ; Start 07/29/18 at 04:00 Glucose (Glutose) 15 gm Q15M PRN PO DECREASED GLUCOSE; Start 07/29/18 at 04:00 Glucose (Glutose) 22.5 gm Q15M PRN PO DECREASED GLUCOSE; Start 07/29/18 at 04:00 Dextrose (D50w Syringe) 25 ml Q15M PRN IV DECREASED GLUCOSE; Start 07/29/18 at 04:00 Dextrose (D50w Syringe) 50 ml Q15M PRN IV DECREASED GLUCOSE; Start 07/29/18 at 04:00 Glucagon (Glucagen) 1 mg Q15M PRN IM DECREASED GLUCOSE; Start 07/29/18 at 04:00 Glucose (Glutose) 15 gm Q15M PRN BUCCAL DECREASED GLUCOSE; Start 07/29/18 at 04:00 Insulin Aspart (Novolog Insulin Pen) 8 unit WITH MEALS SC Last administered on 07/29/18at 11:49; Admin Dose 8 UNIT; Start 07/29/18 at 08:00 Diagnostic Test (Pha) (Accu-Chek) 1 ea 02 XX ; Start 07/30/18 at 02:00 Insulin Aspart (Novolog Insulin Pen) NOVOLOG *MILD* ALGORITHM WITH MEALS BEDTIME SC Last administered on 07/29/18at 11:49; Admin Dose 1 UNIT; Start 07/29/18 at 08:00 Furosemide (Lasix) 20 mg DAILY IV Last administered on 07/29/18at 10:16; Admin Dose 20 MG; Start 07/29/18 at 09:00 Allergies: Coded Allergies: Iodine and Iodide Containing Produc (Verified Allergy, Unknown, 05/15/18) codeine (Verified Allergy, Unknown, 05/15/18) hydromorphone (Verified Allergy, Unknown, 05/15/18) morphine (Verified Allergy, Unknown, 05/15/18) Past Surgical History Past Surgical Hx: other (HPI) Social History Alcohol Use: none Smoking Status: Former smoker Drug Use: none Exam/Review of Systems Vital Signs Vitals Vital Signs Date Temp Pulse Resp B/P (MAP) Pulse Ox O2 O2 Flow FiO2 Time Delivery Rate 07/29/18 98.3 67 18 151/67 94 Room Air 11:48 (95) Intake and Output 07/28/18 07/28/18 07/29/18 1515:00 23:00 07:00 IntakeIntake Total 400 ml BalanceBalance 400 ml Labs Result Diagram: 07/29/18 0530 07/29/18 0530 Results 24hrs Laboratory Tests Test 07/28/18 23:35 07/29/18 02:59 07/29/18 05:30 07/29/18 07:43 White Blood Count 9.1 8.0 Red Blood Count 3.85 L 3.38 L Hemoglobin 10.8 L 9.5 L Hematocrit 35.7 L 31.5 L Mean Corpuscular 92.7 93.2 Volume Mean Corpuscular 28.1 L 28.1 L Hemoglobin Mean Corpuscular 30.3 L 30.2 L Hemoglobin Concent Red Cell 17.3 H 17.2 H Distribution Width Platelet Count 143 123 L Mean Platelet Volume 13.3 H 12.8 H Immature 1.200 H 0.900 H Granulocytes % Neutrophils % 71.6 66.3 Lymphocytes % 20.6 25.2 Monocytes % 4.8 5.1 Eosinophils % 1.4 2.1 Basophils % 0.4 0.4 Nucleated Red Blood 0.0 0.0 Cells % Immature 0.110 H 0.070 H Granulocytes # Neutrophils # 6.5 5.3 Lymphocytes # 1.9 2.0 Monocytes # 0.4 0.4 Eosinophils # 0.1 0.2 Basophils # 0.0 0.0 Nucleated Red Blood 0.0 0.0 Cells # Sodium Level 143 143 Potassium Level 4.6 4.9 Chloride Level 109 110 Carbon Dioxide Level 26 27 Anion Gap 8 6 Blood Urea Nitrogen 28 H 28 H Creatinine 1.33 H 1.39 H Est Glomerular Filtrat Rate mL/min Glucose Level 253 H 167 Calcium Level 9.1 8.6 Total Bilirubin 0.3 0.2 Direct Bilirubin 0.00 0.00 Indirect Bilirubin 0.3 0.2 Aspartate Amino 20 14 L Transf (AST/SGOT) Alanine 9 L 9 L Aminotransferase (AL T/SGPT) Alkaline Phosphatase 88 76 Troponin I < 0.012 < 0.012 B-Type Natriuretic 715 H Peptide Total Protein 6.8 5.7 #L Albumin 3.8 3.0 L Globulin 3.00 2.70 Albumin/Globulin 1.26 1.11 Ratio Bedside Glucose 207 166 Hemoglobin A1c 9.8 H Magnesium Level 1.7 Creatine Kinase 37 Creatine Kinase 1.4 Index Creatinine Kinase MB 0.52 (Mass) Triglycerides Level 138 Cholesterol Level 117 LDL Cholesterol, 51 Calculated HDL Cholesterol 38 Cholesterol/HDL 3.0 Ratio Thyroid Stimulating 0.903 Hormone (TSH) Test 07/29/18 10:50 07/29/18 11:38 Creatine Kinase 47 Creatine Kinase 1.0 Index Creatinine Kinase MB 0.49 (Mass) Troponin I < 0.012 Bedside Glucose 143 Medications Medications Current Medications IV Flush (NS 3 ml) 3 ml PER PROTOCOL IV ; Start 07/29/18 at 03:30 Ondansetron HCl (Zofran Inj) 4 mg Q6H PRN IV NAUSEA/VOMITING; Start 07/29/18 at 03:30 Nitroglycerin (Nitroglycerin (Sl Tab) 0.4 Mg) 1 tab Q5M PRN SL .CHEST PAIN; Start 07/29/18 at 03:30 Acetaminophen (Tylenol Tab) 650 mg Q6H PRN PO .PAIN 1-3 OR TEMP Last administered on 07/29/18at 05:18; Admin Dose 650 MG; Start 07/29/18 at 03:30 Heparin Sodium (Porcine) (Heparin (5000 Units/1ml)) 5,000 unit Q12 SC Last administered on 07/29/18at 08:39; Admin Dose 5,000 UNIT; Start 07/29/18 at 09:00 Albuterol/ Ipratropium (Duoneb) 3 ml Q2H RESP THERAPY PRN HHN SHORTNESS OF BREATH; Start 07/29/18 at 03:30 Allopurinol (Zyloprim) 100 mg DAILY PO Last administered on 07/29/18at 08:35; Admin Dose 100 MG; Start 07/29/18 at 09:00 Doxazosin Mesylate (Cardura) 2 mg BID PO Last administered on 07/29/18 08:36; Admin Dose 2 MG; Start 07/29/18 at 09:00 Furosemide (Lasix) 40 mg DAILY PO ; Start 07/29/18 at 09:00 Gabapentin (Neurontin) 100 mg QID PO Last administered on 07/29/18at 12:04; Admin Dose 100 MG; Start 07/29/18 at 09:00 Insulin Glargine (Lantus) 28 units QAM SC Last administered on 07/29/18at 08:39; Admin Dose 28 UNITS; Start 07/29/18 at 09:00 Magnesium Oxide (Mag-Ox 400) 400 mg DAILY PO Last administered on 07/29/18at 08:35; Admin Dose 400 MG; Start 07/29/18 at 09:00 Metolazone (Zaroxolyn) 2.5 mg DAILY PO ; Start 07/29/18 at 09:00 Metoprolol Tartrate (Lopressor) 50 mg DAILY PO Last administered on 07/29/18at 12:04; Admin Dose 50 MG; Start 07/29/18 at 09:00 Pantoprazole (Protonix Tab) 40 mg DAILY PO Last administered on 07/29/18at 08:36; Admin Dose 40 MG; Start 07/29/18 at 09:00 Spironolactone (Aldactone) 25 mg BID PO Last administered on 07/29/18at 08:35; Admin Dose 25 MG; Start 07/29/18 at 09:00 Miscellaneous Information 150 mg DAILY PO ; Start 07/29/18 at 09:00; Status UNV Miscellaneous Information 10 mg BID PO ; Start 07/29/18 at 09:00; Status UNV Miscellaneous Information 1 ea NOTE XX ; Start 07/29/18 at 04:00 Glucose (Glutose) 15 gm Q15M PRN PO DECREASED GLUCOSE; Start 07/29/18 at 04:00 Glucose (Glutose) 22.5 gm Q15M PRN PO DECREASED GLUCOSE; Start 07/29/18 at 04:00 Dextrose (D50w Syringe) 25 ml Q15M PRN IV DECREASED GLUCOSE; Start 07/29/18 at 04:00 Dextrose (D50w Syringe) 50 ml Q15M PRN IV DECREASED GLUCOSE; Start 07/29/18 at 04:00 Glucagon (Glucagen) 1 mg Q15M PRN IM DECREASED GLUCOSE; Start 07/29/18 at 04:00 Glucose (Glutose) 15 gm Q15M PRN BUCCAL DECREASED GLUCOSE; Start 07/29/18 at 04:00 Insulin Aspart (Novolog Insulin Pen) 8 unit WITH MEALS SC Last administered on 07/29/18at 11:49; Admin Dose 8 UNIT; Start 07/29/18 at 08:00 Diagnostic Test (Pha) (Accu-Chek) 1 ea 02 XX ; Start 07/30/18 at 02:00 Insulin Aspart (Novolog Insulin Pen) NOVOLOG *MILD* ALGORITHM WITH MEALS BEDTIME SC Last administered on 07/29/18at 11:49; Admin Dose 1 UNIT; Start 07/29/18 at 08:00 Furosemide (Lasix) 20 mg DAILY IV Last administered on 07/29/18at 10:16; Admin Dose 20 MG; Start 07/29/18 at 09:00 CHRIS BRYANT MD July 29, 2018 12:25
[2018-07-29] MEDS: [UNRECOGNIZED DRUG - OTHER] XX SCH ×2 (14:30→22:30)
--- NOTE | 2018-07-29 15:04 | PN ---
Date/Time of Note Date/Time of Note DATE: 07/29/18 TIME: 14:59 Assessment/Plan VTE Prophylaxis Risk score (from Ns)>0 risk: 4 SCD applied (from Ns): No SCD contraindicated: other Pharmacological prophylaxis: heparin Lines/Catheters IV [facility]from [facility] Saline [facility] Assessment/Plan Hospital Course S: Patient has less shortness of breath now. Seen by cardiology earlier today. O: Vs- see below PE: Constitutional: alert, oriented, well developed Eyes: EOMI, PERRL Respiratory: clear to auscultation, normal air movement Cardiovascular: regular rate and rhythm, nl pulses Gastrointestinal: soft Musculoskeletal: other (some pain was elicited on the rib right below the right breast) Extremities: edema 1-2 + bilateral to the mid calves Assessment/Plan: 77-year female presents with: 1. Right-sided rib/chest pain: Pain is actually on the rib underneath her right breast-Chest x-ray does not show any rib fracture.-EKG without ST-T wave abnormalities and first troponin negative -Given her history of CAD with stents x7, will rule out ACS, follow-up third troponin is first were negative -Telemetry monitoring -Aspirin, beta-carlito, antilipid. 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 Shortness of breath: secondary to acute on chronic CHF (systolic versus diastolic) -Work-up for ACS -Diuresis -cardiology team has also put on Lasix 40 mg IV twice daily continue for now monitor ins and outs -Follow-up 2D echo 3. CAD status post multiple stent: See #1 4. Dyslipidemia: Continue Crestor 5. Type 1 diabetes: Continue insulin 6. Gout: Continue allopurinol Result Diagram: 07/29/1852907/29/18529 Results 24hrs Laboratory Tests Test 07/28/18 23:35 07/29/18 02:59 07/29/18 05:30 07/29/18 07:43 White Blood Count 9.1 8.0 Red Blood Count 3.85 L 3.38 L Hemoglobin 10.8 L 9.5 L Hematocrit 35.7 L 31.5 L Mean Corpuscular 92.7 93.2 Volume Mean Corpuscular 28.1 L 28.1 L Hemoglobin Mean Corpuscular 30.3 L 30.2 L Hemoglobin Concent Red Cell 17.3 H 17.2 H Distribution Width Platelet Count 143 123 L Mean Platelet Volume 13.3 H 12.8 H Immature 1.200 H 0.900 H Granulocytes % Neutrophils % 71.6 66.3 Lymphocytes % 20.6 25.2 Monocytes % 4.8 5.1 Eosinophils % 1.4 2.1 Basophils % 0.4 0.4 Nucleated Red Blood 0.0 0.0 Cells % Immature 0.110 H 0.070 H Granulocytes # Neutrophils # 6.5 5.3 Lymphocytes # 1.9 2.0 Monocytes # 0.4 0.4 Eosinophils # 0.1 0.2 Basophils # 0.0 0.0 Nucleated Red Blood 0.0 0.0 Cells # Sodium Level 143 143 Potassium Level 4.6 4.9 Chloride Level 109 110 Carbon Dioxide Level 26 27 Anion Gap 8 6 Blood Urea Nitrogen 28 H 28 H Creatinine 1.33 H 1.39 H Est Glomerular Filtrat Rate mL/min Glucose Level 253 H 167 Calcium Level 9.1 8.6 Iron Level 35 Total Iron Binding 341 Capacity Percent Iron 10 L Saturation Total Bilirubin 0.3 0.2 Direct Bilirubin 0.00 0.00 Indirect Bilirubin 0.3 0.2 Aspartate Amino 20 14 L Transf (AST/SGOT) Alanine 9 L 9 L Aminotransferase (AL T/SGPT) Alkaline Phosphatase 88 76 Troponin I < 0.012 < 0.012 B-Type Natriuretic 715 H Peptide Total Protein 6.8 5.7 #L Albumin 3.8 3.0 L Globulin 3.00 2.70 Albumin/Globulin 1.26 1.11 Ratio Bedside Glucose 207 166 Hemoglobin A1c 9.8 H Magnesium Level 1.7 Creatine Kinase 37 Creatine Kinase 1.4 Index Creatinine Kinase MB 0.52 (Mass) Triglycerides Level 138 Cholesterol Level 117 LDL Cholesterol, 51 Calculated HDL Cholesterol 38 Cholesterol/HDL 3.0 Ratio Thyroid Stimulating 0.903 Hormone (TSH) Test 07/29/18 10:50 07/29/18 11:38 Creatine Kinase 47 Creatine Kinase 1.0 Index Creatinine Kinase MB 0.49 (Mass) Troponin I < 0.012 Bedside Glucose 143 Exam/Review of Systems Exam Vitals Vital Signs Date Temp Pulse Resp B/P (MAP) Pulse Ox O2 O2 Flow FiO2 Time Delivery Rate 07/29/18 69 12:00 07/29/18 98.3 18 151/67 94 Room Air 11:48 (95) Intake and Output 07/28/18 07/28/18 07/29/18 1414:59 22:59 06:59 IntakeIntake Total 400 ml BalanceBalance 400 ml Results Results 24hrs Laboratory Tests Test 07/28/18 23:35 07/29/18 02:59 07/29/18 05:30 07/29/18 07:43 White Blood Count 9.1 8.0 Red Blood Count 3.85 L 3.38 L Hemoglobin 10.8 L 9.5 L Hematocrit 35.7 L 31.5 L Mean Corpuscular 92.7 93.2 Volume Mean Corpuscular 28.1 L 28.1 L Hemoglobin Mean Corpuscular 30.3 L 30.2 L Hemoglobin Concent Red Cell 17.3 H 17.2 H Distribution Width Platelet Count 143 123 L Mean Platelet Volume 13.3 H 12.8 H Immature 1.200 H 0.900 H Granulocytes % Neutrophils % 71.6 66.3 Lymphocytes % 20.6 25.2 Monocytes % 4.8 5.1 Eosinophils % 1.4 2.1 Basophils % 0.4 0.4 Nucleated Red Blood 0.0 0.0 Cells % Immature 0.110 H 0.070 H Granulocytes # Neutrophils # 6.5 5.3 Lymphocytes # 1.9 2.0 Monocytes # 0.4 0.4 Eosinophils # 0.1 0.2 Basophils # 0.0 0.0 Nucleated Red Blood 0.0 0.0 Cells # Sodium Level 143 143 Potassium Level 4.6 4.9 Chloride Level 109 110 Carbon Dioxide Level 26 27 Anion Gap 8 6 Blood Urea Nitrogen 28 H 28 H Creatinine 1.33 H 1.39 H Est Glomerular Filtrat Rate mL/min Glucose Level 253 H 167 Calcium Level 9.1 8.6 Iron Level 35 Total Iron Binding 341 Capacity Percent Iron 10 L Saturation Total Bilirubin 0.3 0.2 Direct Bilirubin 0.00 0.00 Indirect Bilirubin 0.3 0.2 Aspartate Amino 20 14 L Transf (AST/SGOT) Alanine 9 L 9 L Aminotransferase (AL T/SGPT) Alkaline Phosphatase 88 76 Troponin I < 0.012 < 0.012 B-Type Natriuretic 715 H Peptide Total Protein 6.8 5.7 #L Albumin 3.8 3.0 L Globulin 3.00 2.70 Albumin/Globulin 1.26 1.11 Ratio Bedside Glucose 207 166 Hemoglobin A1c 9.8 H Magnesium Level 1.7 Creatine Kinase 37 Creatine Kinase 1.4 Index Creatinine Kinase MB 0.52 (Mass) Triglycerides Level 138 Cholesterol Level 117 LDL Cholesterol, 51 Calculated HDL Cholesterol 38 Cholesterol/HDL 3.0 Ratio Thyroid Stimulating 0.903 Hormone (TSH) Test 07/29/18 10:50 07/29/18 11:38 Creatine Kinase 47 Creatine Kinase 1.0 Index Creatinine Kinase MB 0.49 (Mass) Troponin I < 0.012 Bedside Glucose 143 Medications Medication Current Medications IV Flush (NS 3 ml) 3 ml PER PROTOCOL IV ; Start 07/29/18 at 03:30 Ondansetron HCl (Zofran Inj) 4 mg Q6H PRN IV NAUSEA/VOMITING; Start 07/29/18 at 03:30 Nitroglycerin (Nitroglycerin (Sl Tab) 0.4 Mg) 1 tab Q5M PRN SL .CHEST PAIN; Start 07/29/18 at 03:30 Acetaminophen (Tylenol Tab) 650 mg Q6H PRN PO .PAIN 1-3 OR TEMP Last administered on 07/29/18at 05:18; Admin Dose 650 MG; Start 07/29/18 at 03:30 Heparin Sodium (Porcine) (Heparin (5000 Units/1ml)) 5,000 unit Q12 SC Last administered on 07/29/18at 08:39; Admin Dose 5,000 UNIT; Start 07/29/18 at 09:00 Albuterol/ Ipratropium (Duoneb) 3 ml Q2H RESP THERAPY PRN HHN SHORTNESS OF BREATH; Start 07/29/18 at 03:30 Allopurinol (Zyloprim) 100 mg DAILY PO Last administered on 07/29/18at 08:35; Admin Dose 100 MG; Start 07/29/18 at 09:00 Doxazosin Mesylate (Cardura) 2 mg BID PO Last administered on 07/29/18at 08:36; Admin Dose 2 MG; Start 07/29/18 at 09:00 Gabapentin (Neurontin) 100 mg QID PO Last administered on 07/29/18at 12:04; Admin Dose 100 MG; Start 07/29/18 at 09:00 Insulin Glargine (Lantus) 28 units QAM SC Last administered on 07/29/18at 08:39; Admin Dose 28 UNITS; Start 07/29/18 at 09:00 Magnesium Oxide (Mag-Ox 400) 400 mg DAILY PO Last administered on 07/29/18at 08:35; Admin Dose 400 MG; Start 07/29/18 at 09:00 Metolazone (Zaroxolyn) 2.5 mg DAILY PO ; Start 07/29/18 at 09:00 Metoprolol Tartrate (Lopressor) 50 mg DAILY PO Last administered on 07/29/18at 12:04; Admin Dose 50 MG; Start 07/29/18 at 09:00 Pantoprazole (Protonix Tab) 40 mg DAILY PO Last administered on 07/29/18at 08:36; Admin Dose 40 MG; Start 07/29/18 at 09:00 Spironolactone (Aldactone) 25 mg BID PO Last administered on 07/29/18at 08:35; Admin Dose 25 MG; Start 07/29/18 at 09:00 Miscellaneous Information 10 mg BID PO ; Start 07/29/18 at 09:00; Status UNV Miscellaneous Information 1 ea NOTE XX ; Start 07/29/18 at 04:00 Glucose (Glutose) 15 gm Q15M PRN PO DECREASED GLUCOSE; Start 07/29/18 at 04:00 Glucose (Glutose) 22.5 gm Q15M PRN PO DECREASED GLUCOSE; Start 07/29/18 at 04:00 Dextrose (D50w Syringe) 25 ml Q15M PRN IV DECREASED GLUCOSE; Start 07/29/18 at 04:00 Dextrose (D50w Syringe) 50 ml Q15M PRN IV DECREASED GLUCOSE; Start 07/29/18 at 04:00 Glucagon (Glucagen) 1 mg Q15M PRN IM DECREASED GLUCOSE; Start 07/29/18 at 04:00 Glucose (Glutose) 15 gm Q15M PRN BUCCAL DECREASED GLUCOSE; Start 07/29/18 at 04:00 Insulin Aspart (Novolog Insulin Pen) 8 unit WITH MEALS SC Last administered on 07/29/18at 11:49; Admin Dose 8 UNIT; Start 07/29/18 at 08:00 Diagnostic Test (Pha) (Accu-Chek) 1 ea 02 XX ; Start 07/30/18 at 02:00 Insulin Aspart (Novolog Insulin Pen) NOVOLOG *MILD* ALGORITHM WITH MEALS BEDTIME SC Last administered on 07/29/18at 11:49; Admin Dose 1 UNIT; Start 07/29/18 at 08:00 Furosemide (Lasix) 40 mg BID DIURETICS IV ; Start 07/29/18 at 18:00 Miscellaneous Information (*Order Clarification Bulletin) CRESTOR ORDER, DR SOL TO CLARIFYMEDICAT... Q8H XX ; Start 07/29/18 at 14:30 Aspirin (Halfprin) 81 mg DAILY PO ; Start 07/30/18 at 09:00; Status UNV Cyanocobalamin (Vitamin B12) 2,500 mcg DAILY PO ; Start 07/30/18 at 09:00; Status UNV Multivitamins Therapeutic (Theragran) 1 tab DAILY PO ; Start 07/30/18 at 09:00; Status UNV Aspirin (Halfprin) 81 mg DAILY PO ; Start 07/30/18 at 09:00; Status UNV JORGE SOL July 29, 2018 15:04
[2018-07-29] MEDS: FUROSEMIDE 40 MG INJ IV SCH (17:29)
--- NOTE | 2018-07-29 18:22 | CONS ---
DATE OF ADMISSION: 07/29/2018 DATE OF CONSULTATION: 07/29/2018 TYPE OF CONSULTATION: Cardiology. REFERRING PHYSICIAN: Marc Paez MD REASON FOR EVALUATION: Abnormal EKG, precordial chest pain. HISTORY OF PRESENT ILLNESS: Ms. Garcia is a pleasant 77-year-old woman, patient of Dr. Rosenberg, who c omes to the hospital now for evaluation of chest pain and shortness of breath and I have been asked t o see patient in consultation. The patient appears to be hemodynamically stable at this particular p oint. Based on initial assessment, she did not rule in for acute myocardial infarction. Troponin is negative at 0.012. The patient reports she had prior stenting, but I am not sure what kind of ische ben reevaluation she had. For now, the conservative therapy is expected. We will try to contact the office tomorrow morning to see if we can obtain the results of risk stratification. For now, medica l optimization is warranted. The patient is in mild degree of heart failure and I think some degree of diuresis would be reasonable in this particular point. PAST MEDICAL HISTORY: 1. Hypertension. 2. Dyslipidemia. 3. History of coronary artery disease. 4. Prior history of stenting. 5. History of diabetes. 6. History of obesity. ALLERGIES: 1. IODINE. 2. CONTRAST. 3. CODEINE. 4. HYDROMORPHONE. 5. MORPHINE. REVIEW OF SYSTEMS: CONSTITUTIONAL: No fevers, no chills. Shortness of breath as described. HEENT: No change in vision or hearing. CARDIAC: Chest pain reported now. RESPIRATORY: No shortness of breath. GASTROINTESTINAL: No nausea, vomiting. GENITOURINARY: No dysuria, hematuria. NEUROLOGIC: No focal neurologic deficits. HEMATOLOGIC: No easy bruising. PSYCHIATRIC: No history of psychiatric illness. MEDICATIONS: The patient is on: 1. Insulin sliding scale. 2. Lasix 20 mg IV. 3. Nitroglycerin. 4. Ondansetron. 5. Aspirin. 6. Acetaminophen. 7. Albuterol. 8. Pantoprazole. 9. Metoprolol titrate 50 mg p.o. b.i.d. 10. Metolazone 2.5 mg p.o. b.i.d. Now, I started on Lasix to 40 mg p.o. b.i.d. PHYSICAL EXAMINATION: VITAL SIGNS: Temperature 98.3, heart rate 69, blood pressure 161/67. GENERAL: She is an obese woman in no acute distress, alert and oriented x3, aware of her condition. HEENT: Head is normocephalic, atraumatic. Eyes are anicteric. NECK: Supple. JVD 6 is 7 cm. No lymphadenopathy. HEART: Regular, soft I/ holosystolic murmur. PMI is minimally displaced. S1, S2. There is no S3 . LUNGS: Coarse at the base. ABDOMEN: Distended. Bowel sounds are present. There is no hepatosplenomegaly. GENITOURINARY: Intact. EXTREMITIES: Show no clubbing, cyanosis. There is trace edema. DIAGNOSTIC DATA: ECG read by me shows sinus rhythm at the rate of 90. She has borderline low voltag e with some nonspecific ST-T changes and apparently delayed R-wave progression. LABORATORY DATA: Sodium 143, potassium 4.7, her BUN is 29, creatinine 1.39. Hemoglobin A1c is 9.8. TSH is 0.9. Troponin is negative at 0.012. White blood cell count 8.0, hemoglobin 9.5. ASSESSMENT AND PLAN: 1. Precordial chest pain. The patient does report of precordial chest pain. She ruled out for acut e myocardial function ____ stenting. For now, I am going to add aspirin to her regimen and I will tr y to contact the office tomorrow morning to see if she had any recent ischemic risk stratification. Otherwise stress test might be a reasonable option. 2. Congestive heart failure. The patient has heart failure, acute on chronic. Continue gentle diur esis. A 2D echo to follow. 3. Anemia. Hemoglobin is down from 13.4 on last admission ____ to 9.5 now. Continue to monitor. N o evidence of bleeding. 4. Diabetes. Continue diabetic optimization and care. 5. Obesity. Weight loss was advised. 6. Shortness of breath, likely multifactorial. Continue diuresis. The patient is doing better sinc e presentation. I would like to thank Dr. Paez for referring this patient for my evaluation. Dictated By: SIMI BANGURA MD ML/NTS Conf#: [id number] DID#: [id number] CC: MARC PAEZ MD; JORGE SOL;*End*
[2018-07-30] VITALS (11 sets, daily range): BP systolic 116–145; BP diastolic 56–64; PULSE 52–65; RESP 18–20
[2018-07-30] MEDS: ACCU-CHEK XX SCH (02:00)
[2018-07-30] MEDS: FUROSEMIDE 40 MG INJ IV SCH (06:02)
[2018-07-30] MEDS: INSULIN ASPART [NOVOLOG] 3 ML PEN SC SCH ×7 (08:00→21:00)
[2018-07-30] MEDS: ALLOPURINOL 100 MG TAB PO SCH (08:02)
[2018-07-30] MEDS: PANTOPRAZOLE (EC) 40 MG TAB PO SCH (08:02)
[2018-07-30] MEDS: MAGNESIUM OXIDE 400 MG TAB PO SCH (08:02)
[2018-07-30] MEDS: METOLAZONE 2.5 MG TAB PO SCH (08:02)
[2018-07-30] MEDS: SPIRONOLACTONE 25 MG TAB PO SCH ×2 (08:02→21:26)
[2018-07-30] MEDS: DOXAZOSIN 2 MG TAB PO SCH ×2 (08:03→21:27)
[2018-07-30] MEDS: METOPROLOL 50 MG TAB PO SCH (08:04)
[2018-07-30] MEDS: GABAPENTIN 100 MG CAP PO SCH ×4 (08:05→21:27)
[2018-07-30] MEDS: HEPARIN 5,000 UNIT/1 ML VIAL SC SCH ×2 (08:10→21:39)
[2018-07-30] MEDS: INSULIN GLARGINE [LANTus] (100 UNITS/ML) SYG SC SCH (08:13)
[2018-07-30] MEDS: ASPIRIN (EC) 81 MG TAB PO SCH (08:17)
[2018-07-30] MEDS: MULTIVITAMINS THERAPEUTIC TAB PO SCH (08:17)
--- NOTE | 2018-07-30 08:23 | CONS ---
Consult Date/Type/Reason Admit Date/Time July 29, 2018 at 01:16 Initial Consult Date Date/Time of Note DATE: 07/30/18 TIME: 08:20 Subjective NO acute events - pt stable - no CP - in good fluid status - still reports RUQ barrett - doubt cardiac - med RX now - gentle diuresis as tolerated. ROS: No fever, no chills, no nausea, no vomiting, no diarrhea/constipation + RUQ pain No recent weight changes No chest pain, no PND, no orthopnea No dizziness, blurred vision No thirst, no heat or cold intolerance Objective Vitals Vital Signs Date Temp Pulse Resp B/P (MAP) Pulse Ox O2 O2 Flow FiO2 Time Delivery Rate 07/30/18 98.3 60 20 120/58 90 Room Air 07:34 (78) Intake and Output 07/29/18 07/29/18 07/30/18 1414:59 22:59 06:59 IntakeIntake Total 800 ml 500 ml BalanceBalance 800 ml 500 ml Exam General: WN/WD/NAD, AOx 3 HEENT: Unicetric/atraumatic/EOMI (follow commands) NECK: JVD elevated, no thyromegaly Lymph: no lymphadenopathy HEART: regular with no S3, II/ systolic murmur at apex, PMI L LUNGS: Coarse sounds ABD: soft, NT, ND, +BS : Intact Neuro: non focal SKIN: chronic changes EXT: trace edema Results/Medications Result Diagram: 07/30/1852207/30/18522 Results 24 hrs Laboratory Tests Test 07/29/18 10:50 07/29/18 11:38 07/29/18 17:25 07/29/18 20:14 Creatine Kinase 47 Creatine Kinase 1.0 Index Creatinine Kinase MB 0.49 (Mass) Troponin I < 0.012 Bedside Glucose 143 172 151 Test 07/30/18 05:23 07/30/18 07:16 White Blood Count 7.7 Red Blood Count 3.35 L Hemoglobin 9.5 L Hematocrit 30.9 L Mean Corpuscular 92.2 Volume Mean Corpuscular 28.4 L Hemoglobin Mean Corpuscular 30.7 L Hemoglobin Concent Red Cell 16.8 H Distribution Width Platelet Count 118 L Mean Platelet Volume 13.7 H Immature 1.000 H Granulocytes % Neutrophils % 62.5 Lymphocytes % 27.4 Monocytes % 6.0 Eosinophils % 2.7 Basophils % 0.4 Nucleated Red Blood 0.0 Cells % Immature 0.080 H Granulocytes # Neutrophils # 4.8 Lymphocytes # 2.1 Monocytes # 0.5 Eosinophils # 0.2 Basophils # 0.0 Nucleated Red Blood 0.0 Cells # Sodium Level 140 Potassium Level 4.2 Chloride Level 107 Carbon Dioxide Level 26 Anion Gap 7 Blood Urea Nitrogen 29 H Creatinine 1.61 H Est Glomerular Filtrat Rate mL/min Glucose Level 103 # Calcium Level 8.8 Phosphorus Level 5.1 H Magnesium Level 1.5 L Bedside Glucose 115 Home Meds Reported Medications [Vitamin D] No Conflict Check, 23632 PO QFriday 07/29/18 Metolazone* (Metolazone*) 2.5 Mg Tablet, 2.5 MG PO DAILY, TAB 07/29/18 Icosapent Ethyl (VASCEPA) 1 Gm Capsule, 1 GM PO BID, CAP 05/15/18 Gabapentin* (Gabapentin*) 100 Mg Capsule, 100 MG PO QID, #90 CAP 05/15/18 Multivitamins* (Theragran*) 1 Tab Tab, 1 TAB PO DAILY, TAB 03/05/18 Cyanocobalamin* (Vitamin B12*) 500 Mcg Tab, 2500 MCG PO DAILY, TAB 03/05/18 Acetaminophen* (Acetaminophen*) 500 MG Extra Strength Tablet, 1000 MG PO Q6 PRN for PAIN AND OR ELEVATED TEMP, TAB 03/05/18 Aspirin (Low Dose Aspirin) 81 Mg Tablet.dr, 81 MG PO DAILY, #30 TAB 03/05/18 Nitroglycerin* (Nitrostat*) 0.4 Mg Tab.subl, 0.4 MG SL Q5MIN PRN for CHEST PAIN, BOTTLE 03/05/18 Magnesium Oxide* (Mag-Oxide*) 400 Mg Tablet, 400 MG PO DAILY, TAB 03/05/18 Rosuvastatin Calcium* (Crestor*) 10 Mg Tablet, 10 MG PO BID, #30 TAB 03/05/18 Spironolactone* (Aldactone*) 25 Mg Tablet, 25 MG PO BID, #60 TAB 03/05/18 Pantoprazole* (Protonix*) 40 Mg Tablet.dr, 40 MG PO DAILY, TAB 03/05/18 Furosemide* (Lasix*) 40 Mg Tablet, 40 MG PO DAILY, TAB 03/05/18 Allopurinol* (Allopurinol*) 100 Mg Tablet, 100 MG PO DAILY, TAB 03/05/18 Ranitidine Hcl* (Ranitidine Hcl*) 150 Mg Tablet, 150 MG PO HS, #30 TAB 03/05/18 Insulin Lispro (Humalog Kwikpen U-100) 100 Unit/1 Ml Insuln.pen, 8 UNIT SQ WITH MEALS, EA 03/05/18 Metoprolol Tartrate* (Lopressor*) 50 Mg Tab, 50 MG PO DAILY, #60 TAB 03/05/18 Doxazosin Mesylate* (Doxazosin Mesylate*) 2 Mg Tablet, 2 MG PO BID, TAB 03/05/18 Insulin Glargine* (Lantus*) 100 Unit/Ml Soln, 28 UNIT SC QPM, #1 VIAL 03/05/18 Insulin Glargine* (Lantus*) 100 Unit/Ml Soln, 28 UNIT SC QAM, #1 VIAL 03/05/18 Irbesartan* (Irbesartan*) 150 Mg Tablet, 150 MG PO DAILY, TAB 03/05/18 Medications Current Medications IV Flush (NS 3 ml) 3 ml PER PROTOCOL IV ; Start 07/29/18 at 03:30 Ondansetron HCl (Zofran Inj) 4 mg Q6H PRN IV NAUSEA/VOMITING; Start 07/29/18 at 03:30 Nitroglycerin (Nitroglycerin (Sl Tab) 0.4 Mg) 1 tab Q5M PRN SL .CHEST PAIN; St art 07/29/18 at 03:30 Acetaminophen (Tylenol Tab) 650 mg Q6H PRN PO .PAIN 1-3 OR TEMP Last administe red on 07/29/18at 20:11; Admin Dose 650 MG; Start 07/29/18 at 03:30 Heparin Sodium (Porcine) (Heparin (5000 Units/1ml)) 5,000 unit Q12 SC Last administered on 07/30/18at 08:10; Admin Dose 5,000 UNIT; Start 07/29/18 at 09:00 Albuterol/ Ipratropium (Duoneb) 3 ml Q2H RESP THERAPY PRN HHN SHORTNESS OF BREATH; Start 07/29/18 at 03:30 Allopurinol (Zyloprim) 100 mg DAILY PO Last administered on 07/30/18at 08:02; Admin Dose 100 MG; Start 07/29/18 at 09:00 Doxazosin Mesylate (Cardura) 2 mg BID PO Last administered on 07/30/18 08:03; Admin Dose 2 MG; Start 07/29/18 at 09:00 Gabapentin (Neurontin) 100 mg QID PO Last administered on 07/30/18 08:05; Admin Dose 100 MG; Start 07/29/18 at 09:00 Insulin Glargine (Lantus) 28 units QAM SC Last administered on 07/30/18 08:13; Admin Dose 28 UNITS; Start 07/29/18 at 09:00 Magnesium Oxide (Mag-Ox 400) 400 mg DAILY PO Last administered on 07/30/18 08:02; Admin Dose 400 MG; Start 07/29/18 at 09:00 Metolazone (Zaroxolyn) 2.5 mg DAILY PO Last administered on 07/30/18 08:02; Admin Dose 2.5 MG; Start 07/29/18 at 09:00 Metoprolol Tartrate (Lopressor) 50 mg DAILY PO Last administered on 07/30/18 08:04; Admin Dose 50 MG; Start 07/29/18 at 09:00 Pantoprazole (Protonix Tab) 40 mg DAILY PO Last administered on 07/30/18 08:02; Admin Dose 40 MG; Start 07/29/18 at 09:00 Spironolactone (Aldactone) 25 mg BID PO Last administered on 07/30/18 08:02; Admin Dose 25 MG; Start 07/29/18 at 09:00 Atorvastatin Calcium (Lipitor) 40 mg DAILY@21 PO ; Start 07/30/18 at 21:00 Miscellaneous Information 1 ea NOTE XX ; Start 07/29/18 at 04:00 Glucose (Glutose) 15 gm Q15M PRN PO DECREASED GLUCOSE; Start 07/29/18 at 04:00 Glucose (Glutose) 22.5 gm Q15M PRN PO DECREASED GLUCOSE; Start 07/29/18 at 04:00 Dextrose (D50w Syringe) 25 ml Q15M PRN IV DECREASED GLUCOSE; Start 07/29/18 at 04:00 Dextrose (D50w Syringe) 50 ml Q15M PRN IV DECREASED GLUCOSE; Start 07/29/18 at 04:00 Glucagon (Glucagen) 1 mg Q15M PRN IM DECREASED GLUCOSE; Start 07/29/18 at 04:00 Glucose (Glutose) 15 gm Q15M PRN BUCCAL DECREASED GLUCOSE; Start 07/29/18 at 04:00 Insulin Aspart (Novolog Insulin Pen) 8 unit WITH MEALS SC Last administered on 07/30/18 08:12; Admin Dose 8 UNIT; Start 07/29/18 at 08:00 Diagnostic Test (Pha) (Accu-Chek) 1 ea 02 XX ; Start 07/30/18 at 02:00 Insulin Aspart (Novolog Insulin Pen) NOVOLOG *MILD* ALGORITHM WITH MEALS BEDTIME SC Last administered on 07/29/18at 17:32; Admin Dose 1 UNIT; Start 07/29/18 at 08:00 Furosemide (Lasix) 40 mg BID DIURETICS IV Last administered on 07/30/18at 06:02; Admin Dose 40 MG; Start 07/29/18 at 18:00 Multivitamins Therapeutic (Theragran) 1 tab DAILY PO Last administered on 07/30/18at 08:17; Admin Dose 1 TAB; Start 07/30/18 at 09:00 Aspirin (Halfprin) 81 mg DAILY PO Last administered on 07/30/18 08:17; Admin Dose 81 MG; Start 07/30/18 at 09:00 Assessment/Plan Hospital Course (Demo Recall) 1. Precordial chest pain. The patient does report of precordial chest pain. She ruled out for acute myocardial function. Possible h/o stenting. For now, I am going to add aspirin to her regimen and I will try to contact the office tomorrow morning to see if she had any recent ischemic risk stratification. Otherwise stress test might be a reasonable option. I called office - no recent testing done, but symptoms not suggestive of ACS - will Rx clinically now. 2. Congestive heart failure. The patient has heart failure, acute on chronic. Continue gentle diuresis. A 2D echo to follow. ECHO done - will review. 3. Anemia. Hemoglobin is down from 13.4 on last admission - 9.5 now. Continue to monitor. No evidence of bleeding. NO signs of bleeding. 4. Diabetes. Continue diabetic optimization and care. 5. Obesity. Weight loss was advised. 6. Shortness of breath, likely multifactorial. Continue diuresis. The patient is doing better since presentation. Cr up -rernal team to follow. SIMI BANGURA MD July 30, 2018 08:23
[2018-07-30] MEDS ORDERED: ASPIRIN (EC) 81 MG TAB PO SCH (09:00)
[2018-07-30] MEDS ORDERED: CYANOCOBALAMIN 500 MCG TAB PO SCH (09:00)
[2018-07-30] MEDS: ACETAMINOPHEN 325 MG TAB PO PRN (09:30)
[2018-07-30] MEDS ORDERED: MAGNESIUM SULFATE 2 GM/50 ML 50 ML IVPB ONE (10:30)
--- NOTE | 2018-07-30 10:42 | PN ---
Date/Time of Note Date/Time of Note DATE: 07/30/18 TIME: 10:35 Assessment/Plan VTE Prophylaxis Risk score (from Nsg)>0 risk: 7 SCD applied (from Nsg): Yes Pharmacological prophylaxis: heparin Lines/Catheters IV Catheter Type (from Nrsg): Saline Lock Assessment/Plan Assessment/Plan 77 yo morbidly obese woman with history of chronic CHF presents with pleuritic R chest pain. 1. Pleuritic R sided chest pain: -Chest x-ray does not show any rib fracture.-EKG without ST-T wave abnormalities and first troponin negative - Likely from chronic dry cough associated with fluid overload. - Pain is not suspicious for ACS at all. Will defer inpatient stress test. - Cardiology following. - Guaifenasin for cough. 2. Shortness of breath: secondary to acute on chronic CHF (systolic versus diastolic) - Now with ARUN after diuresis. Will stop IV lasix and resume home lasix 40 mg PO daily 3. CAD status post multiple stent: - Cont home aspirin and statin. 4. Dyslipidemia: Continue Crestor 5. Type 1 diabetes: Continue insulin 6. Gout: Continue allopurinol Dispo: Still uncomfortable from muscle cramping (will replete Mg and give baclofen if needed) and from pleuritic R chest pain. Anticipate D/C within 24-48 hrs. Result Diagram: 07/30/1852207/30/18522 Subjective 24 Hr Interval Summary Free Text/Dictation No acute overnight events. Last night slept flat with no orthopnea. This morning complaining of L calf cramping. R chest pleuritic pain is now improving. She reports it's worse with coughing. Exam/Review of Systems Exam Vitals Vital Signs Date Temp Pulse Resp B/P (MAP) Pulse Ox O2 O2 Flow FiO2 Time Delivery Rate 07/30/18 64 08:26 07/30/18 98.3 20 120/58 90 Room Air 07:34 (78) Intake and Output 07/29/18 07/29/18 07/30/18 1515:00 23:00 07:00 IntakeIntake Total 800 ml 500 ml BalanceBalance 800 ml 500 ml Exam Constitutional: Morbidly obese woman sitting in chair and ambulating around room, in some discomfort. Respiratory: clear to auscultation, normal air movement Cardiovascular: regular rate and rhythm, nl pulses Chest: R chest tenderness to palpation below the R breast. Gastrointestinal: soft Extremities: No lower extremity edema. Results Results 24hrs Laboratory Tests Test 07/29/18 10:50 07/29/18 11:38 07/29/18 17:25 07/29/18 20:14 Creatine Kinase 47 Creatine Kinase 1.0 Index Creatinine Kinase MB 0.49 (Mass) Troponin I < 0.012 Bedside Glucose 143 172 151 Test 07/30/18 05:23 07/30/18 07:16 White Blood Count 7.7 Red Blood Count 3.35 L Hemoglobin 9.5 L Hematocrit 30.9 L Mean Corpuscular 92.2 Volume Mean Corpuscular 28.4 L Hemoglobin Mean Corpuscular 30.7 L Hemoglobin Concent Red Cell 16.8 H Distribution Width Platelet Count 118 L Mean Platelet Volume 13.7 H Immature 1.000 H Granulocytes % Neutrophils % 62.5 Lymphocytes % 27.4 Monocytes % 6.0 Eosinophils % 2.7 Basophils % 0.4 Nucleated Red Blood 0.0 Cells % Immature 0.080 H Granulocytes # Neutrophils # 4.8 Lymphocytes # 2.1 Monocytes # 0.5 Eosinophils # 0.2 Basophils # 0.0 Nucleated Red Blood 0.0 Cells # Sodium Level 140 Potassium Level 4.2 Chloride Level 107 Carbon Dioxide Level 26 Anion Gap 7 Blood Urea Nitrogen 29 H Creatinine 1.61 H Est Glomerular Filtrat Rate mL/min Glucose Level 103 # Calcium Level 8.8 Phosphorus Level 5.1 H Magnesium Level 1.5 L Bedside Glucose 115 Medications Medication Current Medications IV Flush (NS 3 ml) 3 ml PER PROTOCOL IV ; Start 07/29/18 at 03:30 Ondansetron HCl (Zofran Inj) 4 mg Q6H PRN IV NAUSEA/VOMITING; Start 07/29/18 at 03:30 Nitroglycerin (Nitroglycerin (Sl Tab) 0.4 Mg) 1 tab Q5M PRN SL .CHEST PAIN; Start 07/29/18 at 03:30 Acetaminophen (Tylenol Tab) 650 mg Q6H PRN PO .PAIN 1-3 OR TEMP Last administered on 07/30/18at 09:30; Admin Dose 650 MG; Start 07/29/18 at 03:30 Heparin Sodium (Porcine) (Heparin (5000 Units/1ml)) 5,000 unit Q12 SC Last administered on 07/30/18 08:10; Admin Dose 5,000 UNIT; Start 07/29/18 at 09:00 Albuterol/ Ipratropium (Duoneb) 3 ml Q2H RESP THERAPY PRN HHN SHORTNESS OF BREATH; Start 07/29/18 at 03:30 Allopurinol (Zyloprim) 100 mg DAILY PO Last administered on 07/30/18 08:02; Admin Dose 100 MG; Start 07/29/18 at 09:00 Doxazosin Mesylate (Cardura) 2 mg BID PO Last administered on 07/30/18 08:03; Admin Dose 2 MG; Start 07/29/18 at 09:00 Gabapentin (Neurontin) 100 mg QID PO Last administered on 07/30/18 08:05; Admi n Dose 100 MG; Start 07/29/18 at 09:00 Insulin Glargine (Lantus) 28 units QAM SC Last administered on 07/30/18 08:13; Admin Dose 28 UNITS; Start 07/29/18 at 09:00 Magnesium Oxide (Mag-Ox 400) 400 mg DAILY PO Last administered on 07/30/18 08:02; Admin Dose 400 MG; Start 07/29/18 at 09:00 Metolazone (Zaroxolyn) 2.5 mg DAILY PO Last administered on 07/30/18 08:02; Admin Dose 2.5 MG; Start 07/29/18 at 09:00 Metoprolol Tartrate (Lopressor) 50 mg DAILY PO Last administered on 07/30/18 08:04; Admin Dose 50 MG; Start 07/29/18 at 09:00 Pantoprazole (Protonix Tab) 40 mg DAILY PO Last administered on 07/30/18 08:02; Admin Dose 40 MG; Start 07/29/18 at 09:00 Spironolactone (Aldactone) 25 mg BID PO Last administered on 07/30/18 08:02; Admin Dose 25 MG; Start 07/29/18 at 09:00 Atorvastatin Calcium (Lipitor) 40 mg DAILY@21 PO ; Start 07/30/18 at 21:00 Miscellaneous Information 1 ea NOTE XX ; Start 07/29/18 at 04:00 Glucose (Glutose) 15 gm Q15M PRN PO DECREASED GLUCOSE; Start 07/29/18 at 04:00 Glucose (Glutose) 22.5 gm Q15M PRN PO DECREASED GLUCOSE; Start 07/29/18 at 04:00 Dextrose (D50w Syringe) 25 ml Q15M PRN IV DECREASED GLUCOSE; Start 07/29/18 at 04:00 Dextrose (D50w Syringe) 50 ml Q15M PRN IV DECREASED GLUCOSE; Start 07/29/18 at 04:00 Glucagon (Glucagen) 1 mg Q15M PRN IM DECREASED GLUCOSE; Start 07/29/18 at 04:00 Glucose (Glutose) 15 gm Q15M PRN BUCCAL DECREASED GLUCOSE; Start 07/29/18 at 04:00 Insulin Aspart (Novolog Insulin Pen) 8 unit WITH MEALS SC Last administered on 07/30/18at 08:12; Admin Dose 8 UNIT; Start 07/29/18 at 08:00 Diagnostic Test (Pha) (Accu-Chek) 1 ea 02 XX ; Start 07/30/18 at 02:00 Insulin Aspart (Novolog Insulin Pen) NOVOLOG *MILD* ALGORITHM WITH MEALS BEDTIME SC Last administered on 07/29/18at 17:32; Admin Dose 1 UNIT; Start 07/29/18 at 08:00 Multivitamins Therapeutic (Theragran) 1 tab DAILY PO Last administered on 07/30/18at 08:17; Admin Dose 1 TAB; Start 07/30/18 at 09:00 Aspirin (Halfprin) 81 mg DAILY PO Last administered on 07/30/18at 08:17; Admin Dose 81 MG; Start 07/30/18 at 09:00 Furosemide (Lasix) 20 mg BID DIURETICS IV ; Start 07/30/18 at 18:00 Magnesium Sulfate 50 ml @ 25 mls/hr ONCE ONCE IVPB ; Start 07/30/18 at 10:30; Stop 07/30/18 at 12:29; Status UNLIONEL LYNN MD July 30, 2018 10:42
[2018-07-30] MEDS ORDERED: GUAIFENESIN 20 MG/ML 5ML CUP PO PRN (11:00)
--- NOTE | 2018-07-30 14:41 | CONS ---
Consultation Date/Type/Reason Admit Date/Time July 29, 2018 at 01:16 Type of Consult Nephrology Date/Time of Note DATE: 07/30/18 TIME: 14:40 Constitutional: improved Exam/Review of Systems Vital Signs Vitals Vital Signs Date Temp Pulse Resp B/P (MAP) Pulse Ox O2 O2 Flow FiO2 Time Delivery Rate 07/30/18 53 12:24 07/30/18 97.5 20 116/56 96 Room Air 11:18 (76) Intake and Output 07/29/18 07/29/18 07/30/18 1515:00 23:00 07:00 IntakeIntake Total 800 ml 500 ml BalanceBalance 800 ml 500 ml Labs Result Diagram: 07/30/1852207/30/1823 Results 24hrs Laboratory Tests Test 07/29/18 17:25 07/29/18 20:14 07/30/18 05:23 07/30/18 07:16 Bedside Glucose 172 151 115 White Blood Count 7.7 Red Blood Count 3.35 L Hemoglobin 9.5 L Hematocrit 30.9 L Mean Corpuscular 92.2 Volume Mean Corpuscular 28.4 L Hemoglobin Mean Corpuscular 30.7 L Hemoglobin Concent Red Cell 16.8 H Distribution Width Platelet Count 118 L Mean Platelet Volume 13.7 H Immature 1.000 H Granulocytes % Neutrophils % 62.5 Lymphocytes % 27.4 Monocytes % 6.0 Eosinophils % 2.7 Basophils % 0.4 Nucleated Red Blood 0.0 Cells % Immature 0.080 H Granulocytes # Neutrophils # 4.8 Lymphocytes # 2.1 Monocytes # 0.5 Eosinophils # 0.2 Basophils # 0.0 Nucleated Red Blood 0.0 Cells # Sodium Level 140 Potassium Level 4.2 Chloride Level 107 Carbon Dioxide Level 26 Anion Gap 7 Blood Urea Nitrogen 29 H Creatinine 1.61 H Est Glomerular Filtrat Rate mL/min Glucose Level 103 # Calcium Level 8.8 Phosphorus Level 5.1 H Magnesium Level 1.5 L Test 07/30/18 11:42 Bedside Glucose 202 Medications Medications Current Medications IV Flush (NS 3 ml) 3 ml PER PROTOCOL IV ; Start 07/29/18 at 03:30 Ondansetron HCl (Zofran Inj) 4 mg Q6H PRN IV NAUSEA/VOMITING; Start 07/29/18 at 03:30 Nitroglycerin (Nitroglycerin (Sl Tab) 0.4 Mg) 1 tab Q5M PRN SL .CHEST PAIN; Start 07/29/18 at 03:30 Acetaminophen (Tylenol Tab) 650 mg Q6H PRN PO .PAIN 1-3 OR TEMP Last administer ed on 07/30/18 09:30; Admin Dose 650 MG; Start 07/29/18 at 03:30 Heparin Sodium (Porcine) (Heparin (5000 Units/1ml)) 5,000 unit Q12 SC Last administered on 07/30/18 08:10; Admin Dose 5,000 UNIT; Start 07/29/18 at 09:00 Albuterol/ Ipratropium (Duoneb) 3 ml Q2H RESP THERAPY PRN HHN SHORTNESS OF B REATH; Start 07/29/18 at 03:30 Allopurinol (Zyloprim) 100 mg DAILY PO Last administered on 07/30/18 08:02; Admin Dose 100 MG; Start 07/29/18 at 09:00 Doxazosin Mesylate (Cardura) 2 mg BID PO Last administered on 07/30/18 08:03; Admin Dose 2 MG; Start 07/29/18 at 09:00 Gabapentin (Neurontin) 100 mg QID PO Last administered on 07/30/18 13:41; Admin Dose 100 MG; Start 07/29/18 at 09:00 Insulin Glargine (Lantus) 28 units QAM SC Last administered on 07/30/18 08:13; Admin Dose 28 UNITS; Start 07/29/18 at 09:00 Magnesium Oxide (Mag-Ox 400) 400 mg DAILY PO Last administered on 07/30/18 08:02; Admin Dose 400 MG; Start 07/29/18 at 09:00 Metolazone (Zaroxolyn) 2.5 mg DAILY PO Last administered on 07/30/18 08:02; Admin Dose 2.5 MG; Start 07/29/18 at 09:00 Metoprolol Tartrate (Lopressor) 50 mg DAILY PO Last administered on 07/30/18 08:04; Admin Dose 50 MG; Start 07/29/18 at 09:00 Pantoprazole (Protonix Tab) 40 mg DAILY PO Last administered on 07/30/18 08:02; Admin Dose 40 MG; Start 07/29/18 at 09:00 Spironolactone (Aldactone) 25 mg BID PO Last administered on 07/30/18at 08:02; Admin Dose 25 MG; Start 07/29/18 at 09:00 Atorvastatin Calcium (Lipitor) 40 mg DAILY@21 PO ; Start 07/30/18 at 21:00 Miscellaneous Information 1 ea NOTE XX ; Start 07/29/18 at 04:00 Glucose (Glutose) 15 gm Q15M PRN PO DECREASED GLUCOSE; Start 07/29/18 at 04:00 Glucose (Glutose) 22.5 gm Q15M PRN PO DECREASED GLUCOSE; Start 07/29/18 at 04:00 Dextrose (D50w Syringe) 25 ml Q15M PRN IV DECREASED GLUCOSE; Start 07/29/18 at 04:00 Dextrose (D50w Syringe) 50 ml Q15M PRN IV DECREASED GLUCOSE; Start 07/29/18 at 04:00 Glucagon (Glucagen) 1 mg Q15M PRN IM DECREASED GLUCOSE; Start 07/29/18 at 04:00 Glucose (Glutose) 15 gm Q15M PRN BUCCAL DECREASED GLUCOSE; Start 07/29/18 at 04:00 Insulin Aspart (Novolog Insulin Pen) 8 unit WITH MEALS SC Last administered on 07/30/18at 12:04; Admin Dose 8 UNIT; Start 07/29/18 at 08:00 Diagnostic Test (Pha) (Accu-Chek) 1 ea 02 XX ; Start 07/30/18 at 02:00 Insulin Aspart (Novolog Insulin Pen) NOVOLOG *MILD* ALGORITHM WITH MEALS BEDTIME SC Last administered on 07/30/18at 12:06; Admin Dose 2 UNIT; Start 07/29/18 at 08:00 Multivitamins Therapeutic (Theragran) 1 tab DAILY PO Last administered on 07/30/18at 08:17; Admin Dose 1 TAB; Start 07/30/18 at 09:00 Aspirin (Halfprin) 81 mg DAILY PO Last administered on 07/30/18at 08:17; Admin Dose 81 MG; Start 07/30/18 at 09:00 Guaifenesin (Robitussin Liquid Cup) 200 mg Q4H PRN PO cough; Start 07/30/18 at 11:00 Furosemide (Lasix) 40 mg DAILY PO ; Start 07/31/18 at 09:00 SHAWN GOLDSTEIN MD July 30, 2018 14:41
--- NOTE | 2018-07-30 14:50 | CONS ---
Assessment/Plan Assessment/Plan Hospital Course (Demo Recall) OVERALL IMPROVED, EDEMA IS DECREASED Assessment/Plan CKD 3 DUE TO AODM AND HYPERTENSION CHF, H/O CAD AND STENTING, ECHO PENDING, BEING FOLLOWED BY CARDIOLOGY, CT CHEST NO SIGNIFICANT ACUTE ABNORMALITY HYPERTENSION CONTROLLED ANEMIA POST HOSPITALISATION WILL MONITOR LEG CRAMPS , MG 1.5 GETTING MG SUPPLEMENT IF CLEARED FROM CARDIAC STANDPOINT COULD BE DISCHARGED TO BE FOLLOWED UP ON OUTPATIENT IN OFFICE Consultation Date/Type/Reason Admit Date/Time July 29, 2018 at 01:16 Type of Consult Nephrology Date/Time of Note DATE: 07/30/18 TIME: 14:42 Exam/Review of Systems Vital Signs Vitals Vital Signs Date Temp Pulse Resp B/P (MAP) Pulse Ox O2 O2 Flow FiO2 Time Delivery Rate 07/30/18 53 12:24 07/30/18 97.5 20 116/56 96 Room Air 11:18 (76) Intake and Output 07/29/18 07/29/18 07/30/18 1515:00 23:00 07:00 IntakeIntake Total 800 ml 500 ml BalanceBalance 800 ml 500 ml Exam Extremities: edema (improving) Labs Result Diagram: 07/30/18 0523 07/30/18 0523 Results 24hrs Laboratory Tests Test 07/29/18 17:25 07/29/18 20:14 07/30/18 05:23 07/30/18 07:16 Bedside Glucose 172 151 115 White Blood Count 7.7 Red Blood Count 3.35 L Hemoglobin 9.5 L Hematocrit 30.9 L Mean Corpuscular 92.2 Volume Mean Corpuscular 28.4 L Hemoglobin Mean Corpuscular 30.7 L Hemoglobin Concent Red Cell 16.8 H Distribution Width Platelet Count 118 L Mean Platelet Volume 13.7 H Immature 1.000 H Granulocytes % Neutrophils % 62.5 Lymphocytes % 27.4 Monocytes % 6.0 Eosinophils % 2.7 Basophils % 0.4 Nucleated Red Blood 0.0 Cells % Immature 0.080 H Granulocytes # Neutrophils # 4.8 Lymphocytes # 2.1 Monocytes # 0.5 Eosinophils # 0.2 Basophils # 0.0 Nucleated Red Blood 0.0 Cells # Sodium Level 140 Potassium Level 4.2 Chloride Level 107 Carbon Dioxide Level 26 Anion Gap 7 Blood Urea Nitrogen 29 H Creatinine 1.61 H Est Glomerular Filtrat Rate mL/min Glucose Level 103 # Calcium Level 8.8 Phosphorus Level 5.1 H Magnesium Level 1.5 L Test 07/30/18 11:42 Bedside Glucose 202 Medications Medications Current Medications IV Flush (NS 3 ml) 3 ml PER PROTOCOL IV ; Start 07/29/18 at 03:30 Ondansetron HCl (Zofran Inj) 4 mg Q6H PRN IV NAUSEA/VOMITING; Start 07/29/18 at 03:30 Nitroglycerin (Nitroglycerin (Sl Tab) 0.4 Mg) 1 tab Q5M PRN SL .CHEST PAIN; Start 07/29/18 at 03:30 Acetaminophen (Tylenol Tab) 650 mg Q6H PRN PO .PAIN 1-3 OR TEMP Last administered on 07/30/18 09:30; Admin Dose 650 MG; Start 07/29/18 at 03:30 Heparin Sodium (Porcine) (Heparin (5000 Units/1ml)) 5,000 unit Q12 SC Last administered on 07/30/18at 08:10; Admin Dose 5,000 UNIT; Start 07/29/18 at 09:00 Albuterol/ Ipratropium (Duoneb) 3 ml Q2H RESP THERAPY PRN HHN SHORTNESS OF BREATH; Start 07/29/18 at 03:30 Allopurinol (Zyloprim) 100 mg DAILY PO Last administered on 07/30/18 08:02; Admin Dose 100 MG; Start 07/29/18 at 09:00 Doxazosin Mesylate (Cardura) 2 mg BID PO Last administered on 07/30/18 08:03; Admin Dose 2 MG; Start 07/29/18 at 09:00 Gabapentin (Neurontin) 100 mg QID PO Last administered on 07/30/18 13:41; Admin Dose 100 MG; Start 07/29/18 at 09:00 Insulin Glargine (Lantus) 28 units QAM SC Last administered on 07/30/18 08:13; Admin Dose 28 UNITS; Start 07/29/18 at 09:00 Magnesium Oxide (Mag-Ox 400) 400 mg DAILY PO Last administered on 07/30/18 08:02; Admin Dose 400 MG; Start 07/29/18 at 09:00 Metolazone (Zaroxolyn) 2.5 mg DAILY PO Last administered on 07/30/18 08:02; Admin Dose 2.5 MG; Start 07/29/18 at 09:00 Metoprolol Tartrate (Lopressor) 50 mg DAILY PO Last administered on 07/30/18at 08:04; Admin Dose 50 MG; Start 07/29/18 at 09:00 Pantoprazole (Protonix Tab) 40 mg DAILY PO Last administered on 07/30/18at 08:02; Admin Dose 40 MG; Start 07/29/18 at 09:00 Spironolactone (Aldactone) 25 mg BID PO Last administered on 07/30/18at 08:02; Admin Dose 25 MG; Start 07/29/18 at 09:00 Atorvastatin Calcium (Lipitor) 40 mg DAILY@21 PO ; Start 07/30/18 at 21:00 Miscellaneous Information 1 ea NOTE XX ; Start 07/29/18 at 04:00 Glucose (Glutose) 15 gm Q15M PRN PO DECREASED GLUCOSE; Start 07/29/18 at 04:00 Glucose (Glutose) 22.5 gm Q15M PRN PO DECREASED GLUCOSE; Start 07/29/18 at 04:0 0 Dextrose (D50w Syringe) 25 ml Q15M PRN IV DECREASED GLUCOSE; Start 07/29/18 at 04:00 Dextrose (D50w Syringe) 50 ml Q15M PRN IV DECREASED GLUCOSE; Start 07/29/18 at 04:00 Glucagon (Glucagen) 1 mg Q15M PRN IM DECREASED GLUCOSE; Start 07/29/18 at 04:00 Glucose (Glutose) 15 gm Q15M PRN BUCCAL DECREASED GLUCOSE; Start 07/29/18 at 04:00 Insulin Aspart (Novolog Insulin Pen) 8 unit WITH MEALS SC Last administered on 07/30/18at 12:04; Admin Dose 8 UNIT; Start 07/29/18 at 08:00 Diagnostic Test (Pha) (Accu-Chek) 1 ea 02 XX ; Start 07/30/18 at 02:00 Insulin Aspart (Novolog Insulin Pen) NOVOLOG *MILD* ALGORITHM WITH MEALS BEDTIME SC Last administered on 07/30/18at 12:06; Admin Dose 2 UNIT; Start 07/29/18 at 08:00 Multivitamins Therapeutic (Theragran) 1 tab DAILY PO Last administered on 07/30/18at 08:17; Admin Dose 1 TAB; Start 07/30/18 at 09:00 Aspirin (Halfprin) 81 mg DAILY PO Last administered on 07/30/18at 08:17; Admin Dose 81 MG; Start 07/30/18 at 09:00 Guaifenesin (Robitussin Liquid Cup) 200 mg Q4H PRN PO cough; Start 07/30/18 at 11:00 Furosemide (Lasix) 40 mg DAILY PO ; Start 07/31/18 at 09:00 SHAWN GOLDSTEIN MD July 30, 2018 14:50
[2018-07-30] MEDS ORDERED: FUROSEMIDE 20 MG INJ IV SCH (18:00)
[2018-07-30] MEDS ORDERED: ATORVASTATIN 40 MG TAB PO SCH (21:00)
--- NOTE | 2018-07-30 21:56 | RADRPT ---
Echocardiogram Report Patient Name: Eric SANTIAGO ID: [id number] : 1940 (77y 12m)Study Date: 07/30/2018 7:26:28 AM Gender: FAccession #: [id number] Tech: Annette Rainey [facility] Location: [facility] Ref.Physician: MIGUELANGEL PAEZ Height(Cm): BSA: Weight(Kg): Quality: AdequateAccount #: Procedures: Echocardiographic Report: Transthoracic echocardiogram with complete 2D, M-Mode, and doppler examination. Indications: Chest Pain, and Congestive Heart Failure. Measurements: 2D/M Mode Doppler Measurement Value Normal Range Measurement Value Normal Range LVIDd 2D 4.4 [ 3.8 - 5.2 ] cm AV Peak Roberto 1.3 [ 100.0 - 170.0 ] cm/sec LVIDs 2D 2.5 [ 2.2 - 3.5 ] cm AV Peak PG 7.0 [ 2.0 - 9.0 ] mmHg LVPWd 2D 1.2 [ 0.6 - 0.9 ] cm LVOT Peak Roberto 0.9 [ 70.0 - 110.0 ] cm/sec IVSd 2D 1.3 [ 0.6 - 0.9 ] cm LVOT Peak PG 3.0 [ 2.0 - 6.0 ] mmHg AoR Diam 2D 2.4 [ 2.3 - 3.1 ] cm MV E Peak Roberto 0.5 [ 60.0 - 130.0 ] cm/sec EDV 2D 85.8 [ 46.0 - 106.0 ] ml MV A Peak Roberto 0.7 [ 100.0 - 120.0 ] cm/sec ESV 2D 22.5 [ 14.0 - 42.0 ] ml MV E/A 0.7 [ 0.8 - 1.5 ] ratio EF 2D 73.8 [ 54.0 - 74.0 ] percent MV Decel Time 250 [ 104 - 258 ] msec LA Dimen 2D 3.2 [ 2.7 - 3.8 ] cm Lat E` Roberto 0.0 [ 10.0 - 15.0 ] cm/sec Lateral E/E` 14.0 [ 1.0 - 2.0 ] ratio MV E/A 0.7 [ 0.8 - 1.5 ] ratio Findings: Left Ventricle: Normal left ventricular systolic function. Normal left ventricular cavity size. Mild concentric left ventricular hypertrophy. Ejection fraction is visually estimated at 65 %. Tissue Doppler/Mitral Doppler indices are consistent with impaired relaxation (Stage I diastolic dysfunction). Right Ventricle: Normal right ventricular size. Normal right ventricular systolic function. Left Atrium: The left atrium is normal in size. Right Atrium: The right atrium is normal in size. Mitral Valve: Normal appearance and function of the mitral valve with trace physiologic regurgitation. Aortic Valve: No significant aortic stenosis or insufficiency. Aortic cusps appear mildly calcified. Tricuspid Valve: Normal appearance and function of the tricuspid valve with trace physiologic regurgitation. Pulmonic Valve: Normal pulmonic valve appearance. Pericardium: Normal pericardium with no significant pericardial effusion. Aorta: Normal aortic root. IVC: Normal size and normal respiratory collapse consistent with normal right atrial pressure. Conclusions: Normal left ventricular systolic function. Normal left ventricular cavity size. Mild concentric left ventricular hypertrophy. Ejection fraction is visually estimated at 65 %. Tissue Doppler/Mitral Doppler indices are consistent with impaired relaxation (Stage I diastolic dysfunction). Normal right ventricular size. Normal right ventricular systolic function. The left atrium is normal in size. The right atrium is normal in size. No significant valvular stenosis or regurgitation seen. Normal pericardium with no significant pericardial effusion. Electronically Signed By: Carlo Bender 2018-07-30 21:55:24 PDT
[2018-07-31] VITALS (10 sets, daily range): BP systolic 115–149; BP diastolic 59–70; PULSE 57–71; RESP 18–19
[2018-07-31] MEDS: ACCU-CHEK XX SCH (02:00)
[2018-07-31] MEDS: ACETAMINOPHEN 325 MG TAB PO PRN (04:43)
[2018-07-31] MEDS: INSULIN ASPART [NOVOLOG] 3 ML PEN SC SCH ×6 (07:44→17:08)
[2018-07-31] MEDS: ALLOPURINOL 100 MG TAB PO SCH (08:21)
[2018-07-31] MEDS: GABAPENTIN 100 MG CAP PO SCH ×4 (08:21→17:12)
[2018-07-31] MEDS: MAGNESIUM OXIDE 400 MG TAB PO SCH (08:21)
[2018-07-31] MEDS: MULTIVITAMINS THERAPEUTIC TAB PO SCH (08:21)
[2018-07-31] MEDS: PANTOPRAZOLE (EC) 40 MG TAB PO SCH (08:21)
[2018-07-31] MEDS: ASPIRIN (EC) 81 MG TAB PO SCH (08:21)
[2018-07-31] MEDS: METOPROLOL 50 MG TAB PO SCH (08:23)
[2018-07-31] MEDS: METOLAZONE 2.5 MG TAB PO SCH (08:23)
[2018-07-31] MEDS: DOXAZOSIN 2 MG TAB PO SCH (08:23)
[2018-07-31] MEDS: SPIRONOLACTONE 25 MG TAB PO SCH (08:23)
[2018-07-31] MEDS: INSULIN GLARGINE [LANTus] (100 UNITS/ML) SYG SC SCH (08:29)
[2018-07-31] MEDS: HEPARIN 5,000 UNIT/1 ML VIAL SC SCH (08:30)
[2018-07-31] MEDS ORDERED: FUROSEMIDE 40 MG TAB PO SCH (09:00)
--- NOTE | 2018-07-31 09:09 | CONS ---
Consult Date/Type/Reason Admit Date/Time July 29, 2018 at 01:16 Initial Consult Date Date/Time of Note DATE: 07/31/18 TIME: 09:07 Subjective NO acute events - BP In good range - con't pleuritic pain - clinically better - doubt ACS. ROS: No fever, no chills, no nausea, no vomiting, no diarrhea/constipation No recent weight changes No chest pain, no PND, no orthopnea - recurrent RUQ vs pleuritic pain No dizziness, blurred vision No thirst, no heat or cold intolerance Objective Vitals Vital Signs Date Temp Pulse Resp B/P (MAP) Pulse Ox O2 O2 Flow FiO2 Time Delivery Rate 07/31/18 64 08:37 07/31/18 98.4 19 139/65 96 07:18 (89) 07/31/18 21 03:16 07/30/18 Room Air 15:31 Intake and Output 07/30/18 07/30/18 07/31/18 1515:00 23:00 07:00 IntakeIntake Total 960 ml BalanceBalance 960 ml Exam General: WN/WD/NAD, AOx 3 HEENT: Unicetric/atraumatic/EOMI (follows commands) NECK: JVD elevated, no thyromegaly Lymph: no lymphadenopathy HEART: regular with no S3, II/ systolic murmur at apex, PMI L LUNGS: Coarse sounds ABD: soft, NT, ND, +BS : Intact Neuro: non focal SKIN: chronic changes EXT: trace edema Results/Medications Result Diagram: 07/30/18 0507/30/18522 Results 24 hrs Laboratory Tests Test 07/30/18 11:42 07/30/18 17:10 07/30/18 20:47 07/31/18 07:33 Bedside Glucose 202 133 165 196 Home Meds Reported Medications [Vitamin D] No [place] Check, [address] PO QFriday 07/29/18 Metolazone* (Metolazone*) 2.5 Mg Tablet, 2.5 MG PO DAILY, TAB 07/29/18 Icosapent Ethyl (VASCEPA) 1 Gm Capsule, 1 GM PO BID, CAP 05/15/18 Gabapentin* (Gabapentin*) 100 Mg Capsule, 100 MG PO QID, #90 CAP 05/15/18 Multivitamins* (Theragran*) 1 Tab Tab, 1 TAB PO DAILY, TAB 03/05/18 Cyanocobalamin* (Vitamin B12*) 500 Mcg Tab, 2500 MCG PO DAILY, TAB 03/05/18 Acetaminophen* (Acetaminophen*) 500 MG Extra Strength Tablet, 1000 MG PO Q6 PRN for PAIN AND OR ELEVATED TEMP, TAB 03/05/18 Aspirin (Low Dose Aspirin) 81 Mg Tablet.dr, 81 MG PO DAILY, #30 TAB 03/05/18 Nitroglycerin* (Nitrostat*) 0.4 Mg Tab.subl, 0.4 MG SL Q5MIN PRN for CHEST PAIN, BOTTLE 03/05/18 Magnesium Oxide* (Mag-Oxide*) 400 Mg Tablet, 400 MG PO DAILY, TAB 03/05/18 Rosuvastatin Calcium* (Crestor*) 10 Mg Tablet, 10 MG PO BID, #30 TAB 03/05/18 Spironolactone* (Aldactone*) 25 Mg Tablet, 25 MG PO BID, #60 TAB 03/05/18 Pantoprazole* (Protonix*) 40 Mg Tablet.dr, 40 MG PO DAILY, TAB 03/05/18 Furosemide* (Lasix*) 40 Mg Tablet, 40 MG PO DAILY, TAB 03/05/18 Allopurinol* (Allopurinol*) 100 Mg Tablet, 100 MG PO DAILY, TAB 03/05/18 Ranitidine Hcl* (Ranitidine Hcl*) 150 Mg Tablet, 150 MG PO HS, #30 TAB 03/05/18 Insulin Lispro (Humalog Kwikpen U-100) 100 Unit/1 Ml Insuln.pen, 8 UNIT SQ WITH MEALS, EA 03/05/18 Metoprolol Tartrate* (Lopressor*) 50 Mg Tab, 50 MG PO DAILY, #60 TAB 03/05/18 Doxazosin Mesylate* (Doxazosin Mesylate*) 2 Mg Tablet, 2 MG PO BID, TAB 03/05/18 Insulin Glargine* (Lantus*) 100 Unit/Ml Soln, 28 UNIT SC QPM, #1 VIAL 03/05/18 Insulin Glargine* (Lantus*) 100 Unit/Ml Soln, 28 UNIT SC QAM, #1 VIAL 03/05/18 Irbesartan* (Irbesartan*) 150 Mg Tablet, 150 MG PO DAILY, TAB 03/05/18 Medications Current Medications IV Flush (NS 3 ml) 3 ml PER PROTOCOL IV ; Start 07/29/18 at 03:30 Ondansetron HCl (Zofran Inj) 4 mg Q6H PRN IV NAUSEA/VOMITING; Start 07/29/18 at 03:30 Nitroglycerin (Nitroglycerin (Sl Tab) 0.4 Mg) 1 tab Q5M PRN SL .CHEST PAIN; Start 07/29/18 at 03:30 Acetaminophen (Tylenol Tab) 650 mg Q6H PRN PO .PAIN 1-3 OR TEMP Last administered on 07/31/18 04:43; Admin Dose 650 MG; Start 07/29/18 at 03:30 Heparin Sodium (Porcine) (Heparin (5000 Units/1ml)) 5,000 unit Q12 SC Last administered on 07/31/18 08:30; Admin Dose 5,000 UNIT; Start 07/29/18 at 09:00 Albuterol/ Ipratropium (Duoneb) 3 ml Q2H RESP THERAPY PRN HHN SHORTNESS OF BREATH; Start 07/29/18 at 03:30 Allopurinol (Zyloprim) 100 mg DAILY PO Last administered on 07/31/18 08:21; Admin Dose 100 MG; Start 07/29/18 at 09:00 Doxazosin Mesylate (Cardura) 2 mg BID PO Last administered on 07/31/18 08:23; Admin Dose 2 MG; Start 07/29/18 at 09:00 Gabapentin (Neurontin) 100 mg QID PO Last administered on 07/31/18 08:21; Admin Dose 100 MG; Start 07/29/18 at 09:00 Insulin Glargine (Lantus) 28 units QAM SC Last administered on 07/31/18 08:29; Admin Dose 28 UNITS; Start 07/29/18 at 09:00 Magnesium Oxide (Mag-Ox 400) 400 mg DAILY PO Last administered on 07/31/18 08:21; Admin Dose 400 MG; Start 07/29/18 at 09:00 Metolazone (Zaroxolyn) 2.5 mg DAILY PO Last administered on 07/31/18 08:23; A dmin Dose 2.5 MG; Start 07/29/18 at 09:00 Metoprolol Tartrate (Lopressor) 50 mg DAILY PO Last administered on 07/31/18 08:23; Admin Dose 50 MG; Start 07/29/18 at 09:00 Pantoprazole (Protonix Tab) 40 mg DAILY PO Last administered on 07/31/18 08:21; Admin Dose 40 MG; Start 07/29/18 at 09:00 Spironolactone (Aldactone) 25 mg BID PO Last administered on 07/31/18 08:23; Admin Dose 25 MG; Start 07/29/18 at 09:00 Atorvastatin Calcium (Lipitor) 40 mg DAILY@21 PO Last administered on 07/30/18 21:26; Admin Dose 40 MG; Start 07/30/18 at 21:00 Miscellaneous Information 1 ea NOTE XX ; Start 07/29/18 at 04:00 Glucose (Glutose) 15 gm Q15M PRN PO DECREASED GLUCOSE; Start 07/29/18 at 04:00 Glucose (Glutose) 22.5 gm Q15M PRN PO DECREASED GLUCOSE; Start 07/29/18 at 04:00 Dextrose (D50w Syringe) 25 ml Q15M PRN IV DECREASED GLUCOSE; Start 07/29/18 at 04:00 Dextrose (D50w Syringe) 50 ml Q15M PRN IV DECREASED GLUCOSE; Start 07/29/18 at 04:00 Glucagon (Glucagen) 1 mg Q15M PRN IM DECREASED GLUCOSE; Start 07/29/18 at 04:00 Glucose (Glutose) 15 gm Q15M PRN BUCCAL DECREASED GLUCOSE; Start 07/29/18 at 04:00 Insulin Aspart (Novolog Insulin Pen) 8 unit WITH MEALS SC Last administered on 07/31/18 07:44; Admin Dose 8 UNIT; Start 07/29/18 at 08:00 Diagnostic Test (Pha) (Accu-Chek) 1 ea 02 XX ; Start 07/30/18 at 02:00 Insulin Aspart (Novolog Insulin Pen) NOVOLOG *MILD* ALGORITHM WITH MEALS BEDTI ME SC Last administered on 07/31/18 07:44; Admin Dose 2 UNIT; Start 07/29/18 at 08:00 Multivitamins Therapeutic (Theragran) 1 tab DAILY PO Last administered on 07/31/18 08:21; Admin Dose 1 TAB; Start 07/30/18 at 09:00 Aspirin (Halfprin) 81 mg DAILY PO Last administered on 5/14/19at 08:21; Admin Dose 81 MG; Start 07/30/18 at 09:00 Guaifenesin (Robitussin Liquid Cup) 200 mg Q4H PRN PO cough; Start 07/30/18 at 11:00 Furosemide (Lasix) 40 mg DAILY PO Last administered on 07/31/18at 08:24; Admin Dose 40 MG; Start 07/31/18 at 09:00 Assessment/Plan Hospital Course (Demo Recall) 1. Precordial chest pain. The patient does report of precordial chest pain. She ruled out for acute myocardial function. Possible h/o stenting. For now, I am going to add aspirin to her regimen and I will try to contact the office tomorrow morning to see if she had any recent ischemic risk stratification. Otherwise stress test might be a reasonable option. I called office - no recent testing done, but symptoms not suggestive of ACS - will Rx clinically now. Improved - conservative rx for now. 2. Congestive heart failure. The patient has heart failure, acute on chronic. Continue gentle diuresis. CHF improved. 3. Anemia. Hemoglobin is down from 13.4 on last admission - 9.5 now. Continue to monitor. No evidence of bleeding. NO signs of bleeding. 4. Diabetes. Continue diabetic optimization and care. 5. Obesity. Weight loss was advised. 6. Shortness of breath, likely multifactorial. Continue diuresis. The patient is doing better since presentation. Cr up -renal team to follow - 1.6 today. SIMI BANGURA MD July 31, 2018 09:09
--- NOTE | 2018-07-31 12:43 | PDOCDIS ---
Discharge Instructions DIAGNOSIS Discharge Diagnosis Pleuritic pain, musculoskeletal CONDITION [id number] Patient Condition: Stagy7s Good HOME CARE INSTRUCTIONS: [id number] Diet Instructions: [id number] Reduced Calorie ACTIVITY: [id number] Activity Restrictions: [id number] No Restrictions FOLLOW UP/APPOINTMENTS Follow-up Plan 1. For your chest pain, take tylenol as needed. Use [id number] cough syrup if your coughing is severe. 2. For your leg swelling, make sure to eat less than 2000 mg sodium per day. If you leg swelling worsens and doesn't improve with leg elevation, can double your lasix dose for one day. If it gets worse despite this, see your doctor. 3. Take all medications as prescribed. 4. See your primary care doctor in 1-2 weeks. LIONEL PINEDA MD July 31, 2018 12:43
--- NOTE | 2018-07-31 18:29 | DS ---
Date/Time of Note Date/Time of Note DATE: 07/31/18 TIME: 18:28 Discharge Summary Admission/Discharge Info Admit Date/Time July 29, 2018 at 01:16 Discharge Date/Time July 31, 2018 at 18:15 Discharge Diagnosis Pleuritic pain, musculoskeletal Patient Condition: Good Hx of Present Illness This is a 77-year-old female with a history of hypertension, type 2 diabetes, dyslipidemia, CAD with multiple stents, CHF, gout who presented to the ER complaining of chest pain shortness of breath. Symptoms have been progressively getting worse for the past several days. Shortness of breath is worse when she is in a supine position. Chest pain is actually right-sided and underneath her right breast. Tenderness was elicited on palpation of the rib right below her breast. She does not actually have any pain on her breast. Last mammogram per patient was a year ago and it was negative. She also reported lower extremity swelling. Her clinic lead is Dr. Wray. When presented to the ER, vitals were stable. First troponin negative and EKG without ST-T wave abnormalities Hospital Course As above, her pain was certainly pleuritic in nature. Cardiac workup was done anyway, she had negative troponins x3. She was slightly fluid overloaded so stayed for IV diuresis. She reported several allergies including to NSAIDs and opiates, so our only option for treating pain was acetaminophen. Cough syrup as needed for cough. Home Meds Reported Medications [Vitamin D] No Conflict Check, 38784 PO QFriday 07/29/18 Metolazone* (Metolazone*) 2.5 Mg Tablet, 2.5 MG PO DAILY, TAB 07/29/18 Icosapent Ethyl (VASCEPA) 1 Gm Capsule, 1 GM PO BID, CAP 05/15/18 Gabapentin* (Gabapentin*) 100 Mg Capsule, 100 MG PO QID, #90 CAP 05/15/18 Multivitamins* (Theragran*) 1 Tab Tab, 1 TAB PO DAILY, TAB 03/05/18 Cyanocobalamin* (Vitamin B12*) 500 Mcg Tab, 2500 MCG PO DAILY, TAB 03/05/18 Acetaminophen* (Acetaminophen*) 500 MG Extra Strength Tablet, 1000 MG PO Q6 PRN for PAIN AND OR ELEVATED TEMP, TAB 03/05/18 Aspirin (Low Dose Aspirin) 81 Mg Tablet., 81 MG PO DAILY, #30 TAB 03/05/18 Nitroglycerin* (Nitrostat*) 0.4 Mg Tab.subl, 0.4 MG SL Q5MIN PRN for CHEST PAIN, BOTTLE 03/05/18 Magnesium Oxide* (Mag-Oxide*) 400 Mg Tablet, 400 MG PO DAILY, TAB 03/05/18 Rosuvastatin Calcium* (Crestor*) 10 Mg Tablet, 10 MG PO BID, #30 TAB 03/05/18 Spironolactone* (Aldactone*) 25 Mg Tablet, 25 MG PO BID, #60 TAB 18 Pantoprazole* (Protonix*) 40 Mg Tablet.dr, 40 MG PO DAILY, TAB 03/05/18 Furosemide* (Lasix*) 40 Mg Tablet, 40 MG PO DAILY, TAB 03/05/18 Allopurinol* (Allopurinol*) 100 Mg Tablet, 100 MG PO DAILY, TAB 03/05/18 Ranitidine Hcl* (Ranitidine Hcl*) 150 Mg Tablet, 150 MG PO HS, #30 TAB 03/05/18 Insulin Lispro (Humalog Kwikpen U-100) 100 Unit/1 Ml Insuln.pen, 8 UNIT SQ WITH MEALS, EA 03/05/18 Metoprolol Tartrate* (Lopressor*) 50 Mg Tab, 50 MG PO DAILY, #60 TAB 03/05/18 Doxazosin Mesylate* (Doxazosin Mesylate*) 2 Mg Tablet, 2 MG PO BID, TAB 03/05/18 Insulin Glargine* (Lantus*) 100 Unit/Ml Soln, 28 UNIT SC QPM, #1 VIAL 03/05/18 Insulin Glargine* (Lantus*) 100 Unit/Ml Soln, 28 UNIT SC QAM, #1 VIAL 03/05/18 Irbesartan* (Irbesartan*) 150 Mg Tablet, 150 MG PO DAILY, TAB 03/05/18 Follow-up Plan 1. For your chest pain, take tylenol as needed. Use [id number] cough syrup if your coughing is severe. 2. For your leg swelling, make sure to eat less than 2000 mg sodium per day. If you leg swelling worsens and doesn't improve with leg elevation, can double your lasix dose for one day. If it gets worse despite this, see your doctor. 3. Take all medications as prescribed. 4. See your primary care doctor in 1-2 weeks. Primary Care Provider Andrey Buitrago MD Time spent on discharge: > 30 minutes Pending Labs Laboratory Tests Test 07/30/18 20:47 07/31/18 07:33 07/31/18 11:42 07/31/18 17:03 Bedside 165 196 209 197 Glucose mg/dL (70-220) mg/dL (70-220) mg/dL (70-220) mg/dL (70-220) LIONEL PINEDA MD July 31, 2018 18:29
--- NOTE | 2018-07-31 18:51 | CONS ---
Assessment/Plan Assessment/Plan Assessment/Plan 1.Chest pain unspecified 2.Sob sec to Chf exacerbation 3.Ckd-3 4.AODM 5.Htn 6.Dyslipidemia 7.Anemia sec to Ckd p: -Chf improved -Ckd-3. S.cr unchanged. -Diastolic Chf. Continue po lasix. 2D Echo reviewed -Htn, Bp profile reviewed. Bp meds noted -Uncontrolled AODM. HBA1C 9.3 -Anemia. Monitor outpt -Dyslipidemia -Renal issues d/w pt -Ok for d/c renal standpoint with outpt f/u with outpt f/u with Dr Buitrago in one week Consultation Date/Type/Reason Admit Date/Time July 29, 2018 at 01:16 Type of Consult Nephrology Date/Time of Note DATE: 07/31/18 TIME: 1000 Exam/Review of Systems Vital Signs Vitals Vital Signs Date Temp Pulse Resp B/P (MAP) Pulse Ox O2 O2 Flow FiO2 Time Delivery Rate 07/31/18 57 16:35 07/31/18 97.8 19 149/70 95 15:14 (96) 07/31/18 21 03:16 07/30/18 Room Air 15:31 Intake and Output 07/30/18 07/30/18 07/31/18 1515:00 23:00 07:00 IntakeIntake Total 960 ml BalanceBalance 960 ml Labs Result Diagram: 07/30/18 0523 07/30/18 0523 Results 24hrs Laboratory Tests Test 07/30/18 20:47 07/31/18 07:33 07/31/18 11:42 07/31/18 17:03 Bedside Glucose 165 196 209 197 CHRIS BRYANT MD July 31, 2018 18:51
== END 2018-07-31 18:15 | disposition home or self-care (01) ==
LOC: E/R 21:07 → 6WM 07-29 01:16
PROVIDERS: ADMIT Internal Medicine; ATTEND Internal Medicine
DX: R07.89 Other chest pain (principal); I13.0 Hypertensive heart and chronic kidney disease with heart failure and stage 1 through stage 4 chronic kidney disease, or unspecified chronic kidney disease; E11.22 Type 2 diabetes mellitus with diabetic chronic kidney disease; N18.3 Chronic kidney disease, stage 3 (moderate); I50.9 Heart failure, unspecified; D63.1 Anemia in chronic kidney disease; E78.5 Hyperlipidemia, unspecified; I25.10 Atherosclerotic heart disease of native coronary artery without angina pectoris; Z95.5 Presence of coronary angioplasty implant and graft; M10.9 Gout, unspecified; Z79.82 Long term (current) use of aspirin; Z79.4 Long term (current) use of insulin
CPT/HCPCS: 71045; 71250; 80048; 80053; 80061; 82550; 82553; 82962; 83036; 83540; 83735; 83880; 84100; 84443; 84484; 85025; 93005; 93306; 96374; 96375; 97161; 99285; G0378; J1644; J1815; J1940; J2405; J3475